=== PATIENT | male | born 1935 | race Caucasian/White ===

== ENCOUNTER 2017-04-16 17:26 | Inpatient (IN) | payer MEDICARE ==
[~2017-04-16] VITALS: Ht 182.9 cm; Wt 91.0 kg
[~2017-04-16 17:26] MED LIST: pantoprazole 40 MG vial IV SCH
[2017-04-16] MEDS ORDERED: morphine 5 MG/ML injection IV ONE ×2 (17:30→19:00)
[2017-04-16] MEDS ORDERED: ondansetron/PF 4mg/2ml inj IV ONE (17:30)
[2017-04-16 18:41] LABS: BASOPHILS % (AUTO) 0 % (0-1); EOSINOPHILS # (AUTO) 0.4 X10'3 (0-0.9); EOSINOPHILS % (AUTO) 1.9 % (0-6); HEMATOCRIT 46.1 % (42.0-52.0); HEMOGLOBIN 15.4 g/dl (14.0-17.9); LYMPHOCYTES # (AUTO) 1.4 X10'3 (1.1-4.8); LYMPHOCYTES % (AUTO) 7.4 % (21-51); MEAN CORPUSCULAR HEMOGLOBIN 31.4 PG (27.0-31.0); MEAN CORPUSCULAR HGB CONC 33.4 % (33.0-36.5); MEAN CORPUSCULAR VOLUME 93.8 FL (78-98); MEAN PLATELET VOLUME 8.6 FL (7.4-10.4); MONOCYTES % (AUTO) 4.9 % (2-12); NEUTROPHILS # (AUTO) 16.7 X10'3 (1.8-7.7); NEUTROPHILS % (AUTO) 85.8 % (42-75); PLATELET COUNT 175 X10'3 (140-440); RED BLOOD COUNT 4.91 X10'6 (4.70-6.10); RED CELL DISTRIBUTION WIDTH 13.5 % (11.5-14.5); WHITE BLOOD COUNT 19.5 X10'3 (4.5-11.0)
[2017-04-16 19:00] LABS: INR 1.1 INR; PROTHROMBIN TIME 11.2 SECONDS (9.0-12.0)
[2017-04-16 19:07] LABS: ALANINE AMINOTRANSFERASE 34 U/L (12-78); ALBUMIN 3.9 G/DL (3.4-5.0); ALKALINE PHOSPHATASE 81 IU/L (46-116); ANION GAP 6 (8-16); ASPARTATE AMINO TRANSFERASE 23 U/L (10-37); BILIRUBIN,TOTAL 1.1 MG/DL (0.1-1.0); BLOOD UREA NITROGEN 16 MG/DL (7-18); BUN/CREATININE RATIO 14.8 (5.4-32.0); CALCIUM 9.8 MG/DL (8.5-10.1); CHLORIDE 104 MMOL/L (99-107); CREATININE 1.08 MG/DL (0.60-1.10); GLUCOSE 145 MG/DL (70-104); MAGNESIUM 1.9 MG/DL (1.5-2.4); POTASSIUM 4.4 MMOL/L (3.5-5.1); SODIUM 140 MMOL/L (135-145); TOTAL CARBON DIOXIDE 29.7 MMOL/L (24-32); TOTAL PROTEIN 7.9 G/DL (6.4-8.2); eGFR 65 ML/MIN
[2017-04-16] MEDS ORDERED: AMLO-93 PO (19:39)
[2017-04-16] MEDS ORDERED: temazepam 15mg capsule PO PRN (21:00)
[2017-04-16] MEDS ORDERED: normal saline 1000ml 1,000 ML IV SCH (22:07)
[2017-04-16] MEDS ORDERED: HYDROmorphone 1 mg/ml syringe IV PRN ×2 (22:10)
[2017-04-16] MEDS ORDERED: diphenhydrAMINE 25mg capsule PO PRN (22:10)
[2017-04-16] MEDS ORDERED: magnesium hydroxide 30ml (MOM) UD suspension PO PRN (22:10)
[2017-04-16] MEDS ORDERED: HYDROcodone/acetaminophen 5mg/325mg tablet PO PRN (22:10)
[2017-04-16] MEDS ORDERED: bisacodyl 10mg suppository rectal RC PRN (22:10)
[2017-04-16] MEDS ORDERED: acetaminophen 325mg tablet PO PRN ×2 (22:10)
[2017-04-16] MEDS ORDERED: metoclopramide 5 mg/ml inj IV PRN (22:10)
[2017-04-16] MEDS ORDERED: diphenhydrAMINE 50 mg/ml inj IV PRN (22:10)
[2017-04-16] MEDS ORDERED: acetaminophen 650mg rectal suppository RC PRN (22:10)
[2017-04-16] MEDS ORDERED: ondansetron/PF 4mg/2ml inj IV PRN (22:10)
[2017-04-16] MEDS ORDERED: mag hydrox/Alum hydrox/simeth 30ml oral suspension PO PRN (22:10)
[2017-04-16] MEDS ORDERED: morphine sulfate 8 MG/ML SYRINGE IV PRN (22:55)
[2017-04-16 23:20] VITALS: BP 147/91
[2017-04-16] MEDS: amLODIPine 5mg tablet PO SCH (23:56)
[2017-04-17] VITALS (17 sets, daily range): BP systolic 106–192; BP diastolic 75–96
[2017-04-17 07:09] LABS: BASOPHILS % (AUTO) 0.2 % (0-1); EOSINOPHILS # (AUTO) 0.1 X10'3 (0-0.9); EOSINOPHILS % (AUTO) 0.9 % (0-6); HEMATOCRIT 44.2 % (42.0-52.0); HEMOGLOBIN 14.9 g/dl (14.0-17.9); LYMPHOCYTES # (AUTO) 1.7 X10'3 (1.1-4.8); LYMPHOCYTES % (AUTO) 17.6 % (21-51); MEAN CORPUSCULAR HEMOGLOBIN 31.4 PG (27.0-31.0); MEAN CORPUSCULAR HGB CONC 33.6 % (33.0-36.5); MEAN CORPUSCULAR VOLUME 93.2 FL (78-98); MEAN PLATELET VOLUME 8.7 FL (7.4-10.4); MONOCYTES # (AUTO) 0.9 X10'3 (0-0.9); MONOCYTES % (AUTO) 9.1 % (2-12); NEUTROPHILS # (AUTO) 6.9 X10'3 (1.8-7.7); NEUTROPHILS % (AUTO) 72.2 % (42-75); PLATELET COUNT 158 X10'3 (140-440); RED BLOOD COUNT 4.74 X10'6 (4.70-6.10); RED CELL DISTRIBUTION WIDTH 13.8 % (11.5-14.5); WHITE BLOOD COUNT 9.5 X10'3 (4.5-11.0)
[2017-04-17] MEDS: amLODIPine 5mg tablet PO SCH (07:18)
[2017-04-17 07:27] LABS: ALANINE AMINOTRANSFERASE 35 U/L (12-78); ALBUMIN 3.6 G/DL (3.4-5.0); ALBUMIN/GLOBULIN RATIO 0.9 (1.1-1.5); ALKALINE PHOSPHATASE 69 IU/L (46-116); ANION GAP 7 (8-16); ASPARTATE AMINO TRANSFERASE 20 U/L (10-37); BILIRUBIN,TOTAL 2.1 MG/DL (0.1-1.0); BLOOD UREA NITROGEN 18 MG/DL (7-18); CALCIUM 9.5 MG/DL (8.5-10.1); CHLORIDE 104 MMOL/L (99-107); CREATININE 1.06 MG/DL (0.60-1.10); GLUCOSE 153 MG/DL (70-104); POTASSIUM 4.6 MMOL/L (3.5-5.1); SODIUM 140 MMOL/L (135-145); TOTAL CARBON DIOXIDE 29.1 MMOL/L (24-32); TOTAL PROTEIN 7.6 G/DL (6.4-8.2); eGFR 67 ML/MIN
[2017-04-17] MEDS: docusate sod 100mg capsule PO SCH ×2 (08:00→21:03)
[2017-04-17] MEDS ORDERED: vancomycin 1,000mg inj ONE (15:33)
[2017-04-17] MEDS: HYDROcodone/acetaminophen 10/325mg tab PO PRN (15:53)
[2017-04-17] MEDS ORDERED: cefazolin/dext.iso 2gm/50ml 50 ML IV SCH (17:00)
[2017-04-17] MEDS ORDERED: sevoflurane 250ml liquid IH ONE (17:03)
[2017-04-17] MEDS ORDERED: fentaNYL/PF 50MCG/1 ML 2ML syringe ONE (17:06)
[2017-04-17] MEDS ORDERED: propofol inj 20 ML IV ONE (17:06)
[2017-04-17] MEDS ORDERED: midazolam 2 mg/2 ml injection ONE (17:06)
[2017-04-17] MEDS ORDERED: ringers solution, lacted 1,000 ML IV SCH (17:46)
[2017-04-17] MEDS ORDERED: ondansetron/PF 4mg/2ml inj IV PRN (17:50)
[2017-04-17] MEDS ORDERED: meperidine/PF 25mg/ml syringe IV PRN ×3 (17:50)
[2017-04-17] MEDS ORDERED: proCHLORperazine 10 MG/2 ml inj IV PRN (17:50)
[2017-04-17] MEDS: normal saline 1000ml 1,000 ML IV SCH (19:25)
[2017-04-18] MEDS: cefazolin/dext.iso 2gm/50ml 50 ML IV SCH ×2 (00:08→08:17)
[2017-04-18] MEDS ORDERED: CefTRIAXone/dextrose 2GM bag 50 ML IV SCH (01:00)
[2017-04-18 02:00] VITALS: BP 141/67
[2017-04-18] MEDS: normal saline 1000ml 1,000 ML IV SCH ×2 (03:17→14:12)
[2017-04-18] MEDS: HYDROcodone/acetaminophen 10/325mg tab PO PRN ×5 (05:20→19:31)
[2017-04-18 06:00] VITALS: BP 166/95
[2017-04-18 06:36] LABS: BASOPHILS % (AUTO) 0.3 % (0-1); EOSINOPHILS # (AUTO) 0.2 X10'3 (0-0.9); EOSINOPHILS % (AUTO) 1.6 % (0-6); HEMATOCRIT 40.2 % (42.0-52.0); HEMOGLOBIN 13.6 g/dl (14.0-17.9); LYMPHOCYTES # (AUTO) 2.1 X10'3 (1.1-4.8); LYMPHOCYTES % (AUTO) 18.7 % (21-51); MEAN CORPUSCULAR HEMOGLOBIN 31.7 PG (27.0-31.0); MEAN CORPUSCULAR HGB CONC 33.7 % (33.0-36.5); MEAN CORPUSCULAR VOLUME 93.8 FL (78-98); MEAN PLATELET VOLUME 8.6 FL (7.4-10.4); MONOCYTES # (AUTO) 1.2 X10'3 (0-0.9); MONOCYTES % (AUTO) 10.8 % (2-12); NEUTROPHILS # (AUTO) 7.8 X10'3 (1.8-7.7); NEUTROPHILS % (AUTO) 68.6 % (42-75); PLATELET COUNT 159 X10'3 (140-440); RED BLOOD COUNT 4.28 X10'6 (4.70-6.10); WHITE BLOOD COUNT 11.4 X10'3 (4.5-11.0)
[2017-04-18 07:08] LABS: ALANINE AMINOTRANSFERASE 30 U/L (12-78); ALBUMIN 3.1 G/DL (3.4-5.0); ALBUMIN/GLOBULIN RATIO 0.8 (1.1-1.5); ALKALINE PHOSPHATASE 61 IU/L (46-116); ANION GAP 5 (8-16); ASPARTATE AMINO TRANSFERASE 20 U/L (10-37); BILIRUBIN,TOTAL 2.2 MG/DL (0.1-1.0); BLOOD UREA NITROGEN 21 MG/DL (7-18); BUN/CREATININE RATIO 19.8 (5.4-32.0); CALCIUM 8.7 MG/DL (8.5-10.1); CHLORIDE 106 MMOL/L (99-107); CREATININE 1.06 MG/DL (0.60-1.10); GLUCOSE 134 MG/DL (70-104); POTASSIUM 4.5 MMOL/L (3.5-5.1); SODIUM 141 MMOL/L (135-145); TOTAL CARBON DIOXIDE 29.9 MMOL/L (24-32); TOTAL PROTEIN 6.8 G/DL (6.4-8.2); eGFR 67 ML/MIN
[2017-04-18] MEDS: amLODIPine 5mg tablet PO SCH (08:18)
[2017-04-18] MEDS: docusate sod 100mg capsule PO SCH ×2 (08:18→19:30)
[2017-04-18] MEDS: aspirin 325mg tablet PO SCH (08:19)
[2017-04-18 10:00] VITALS: BP 125/71
[2017-04-18 14:00] VITALS: BP 147/77
[2017-04-18 17:40] VITALS: BP 139/88
[2017-04-18] MEDS ORDERED: lisinopril 20mg tablet PO SCH (19:00)
[2017-04-18 22:00] VITALS: BP 142/70
[2017-04-19] MEDS: normal saline 1000ml 1,000 ML IV SCH ×3 (00:05→11:25)
[2017-04-19 01:52] VITALS: BP 142/86
[2017-04-19] MEDS: HYDROcodone/acetaminophen 10/325mg tab PO PRN ×4 (02:55→15:41)
[2017-04-19 06:00] VITALS: BP 145/74
[2017-04-19 07:05] LABS: BASOPHILS # (AUTO) 0.1 X10'3 (0-0.2); BASOPHILS % (AUTO) 0.4 % (0-1); EOSINOPHILS # (AUTO) 0.3 X10'3 (0-0.9); EOSINOPHILS % (AUTO) 2.6 % (0-6); HEMATOCRIT 39.4 % (42.0-52.0); HEMOGLOBIN 13.3 g/dl (14.0-17.9); LYMPHOCYTES # (AUTO) 3.1 X10'3 (1.1-4.8); LYMPHOCYTES % (AUTO) 26.3 % (21-51); MEAN CORPUSCULAR HEMOGLOBIN 31.8 PG (27.0-31.0); MEAN CORPUSCULAR HGB CONC 33.8 % (33.0-36.5); MEAN PLATELET VOLUME 8.8 FL (7.4-10.4); MONOCYTES # (AUTO) 1.2 X10'3 (0-0.9); MONOCYTES % (AUTO) 10.1 % (2-12); NEUTROPHILS # (AUTO) 7.1 X10'3 (1.8-7.7); NEUTROPHILS % (AUTO) 60.6 % (42-75); PLATELET COUNT 155 X10'3 (140-440); RED BLOOD COUNT 4.19 X10'6 (4.70-6.10); RED CELL DISTRIBUTION WIDTH 13.6 % (11.5-14.5); WHITE BLOOD COUNT 11.8 X10'3 (4.5-11.0)
[2017-04-19] MEDS: docusate sod 100mg capsule PO SCH (07:05)
[2017-04-19] MEDS: amLODIPine 5mg tablet PO SCH (07:05)
[2017-04-19] MEDS: aspirin 325mg tablet PO SCH (07:05)
[2017-04-19 07:19] LABS: ALANINE AMINOTRANSFERASE 24 U/L (12-78); ALBUMIN/GLOBULIN RATIO 0.8 (1.1-1.5); ALKALINE PHOSPHATASE 61 IU/L (46-116); ANION GAP 5 (8-16); ASPARTATE AMINO TRANSFERASE 19 U/L (10-37); BLOOD UREA NITROGEN 20 MG/DL (7-18); BUN/CREATININE RATIO 21.1 (5.4-32.0); CALCIUM 8.9 MG/DL (8.5-10.1); CHLORIDE 106 MMOL/L (99-107); CREATININE 0.95 MG/DL (0.60-1.10); GLUCOSE 118 MG/DL (70-104); SODIUM 142 MMOL/L (135-145); TOTAL CARBON DIOXIDE 30.6 MMOL/L (24-32); TOTAL PROTEIN 6.9 G/DL (6.4-8.2); eGFR 76 ML/MIN
[2017-04-19] MEDS ORDERED: lisinopril 20mg tablet PO SCH (08:00)
[2017-04-19 11:00] VITALS: BP 135/69
[2017-04-19] MEDS ORDERED: HYDR-569 PO (11:21)
[2017-04-19] MEDS ORDERED: ASPI-1 PO (11:21)
[2017-04-19] MEDS ORDERED: TEMA15CA PO (11:21)
[2017-04-19] MEDS ORDERED: HYDR-3972 PO (11:21)
== END 2017-04-19 16:15 | DRG 481 ==
LOC: ER 17:26 → ED HOLD 22:07 → ORTHO 4S 23:30 → PAS IN 04-17 18:30 → ORTHO 4S 04-17 19:14
PROVIDERS: ADMIT Family Medicine; ATTEND Internal Medicine
PROC: 0QS636Z Reposition Right Upper Femur with Intramedullary Internal Fixation Device, Percutaneous Approach (ICD-10-PCS; principal; 2017-04-17 17:03)
DX: S72.141A Displaced intertrochanteric fracture of right femur, initial encounter for closed fracture (principal); I16.1 Hypertensive emergency; I10 Essential (primary) hypertension; W01.0XXA Fall on same level from slipping, tripping and stumbling without subsequent striking against object, initial encounter; Z79.82 Long term (current) use of aspirin; Z79.899 Other long term (current) drug therapy; Y93.89 Activity, other specified; Y92.89 Other specified places as the place of occurrence of the external cause; Y99.8 Other external cause status
CPT/HCPCS: 27187; 36415; 71010; 73502; 73552; 73700; 76001; 80053; 83735; 83880; 85025; 85610; 87070; 96374; 96375; 96376; 97110; 97161; 97530; 99285; A4315; A6222; A6449; A7000; J0690; J0696; J2250; J2270; J2405; J2704; J3010; J3370; J7030; J7120

== ENCOUNTER 2021-02-13 10:02 | Inpatient (IN) | payer MEDICARE ==
[~2021-02-13] VITALS: Ht 180.3 cm; Wt 109.0 kg
[~2021-02-13 10:02] MED LIST changes: +AMLO-140 PO; +ASPI-1 PO; +HYDR-3972 PO; +HYDR-4383 PO; +TEMA15CA PO; -pantoprazole 40 MG vial IV SCH
[2021-02-13] MEDS ORDERED: piperacillin/tazo 3.375gm/50ml 50 ML IV ONE (10:40)
[2021-02-13] MEDS ORDERED: vancomycin/NS 1 GM ADD-VANTAGE 250 ML IV ONE (10:40)
[2021-02-13] MEDS ORDERED: normal saline 1000ML IV soln IVB ONE (10:40)
[2021-02-13 11:04] LABS: BASOPHILS # (AUTO) 0.1 X10'3 (0-0.2); BASOPHILS % (AUTO) 0.6 % (0-1); EOSINOPHILS # (AUTO) 0.1 X10'3 (0-0.9); EOSINOPHILS % (AUTO) 0.5 % (0-6); HEMATOCRIT 44.1 % (42.0-52.0); HEMOGLOBIN 14.9 g/dl (14.0-17.9); LYMPHOCYTES % (AUTO) 42.5 % (21-51); MEAN CORPUSCULAR HEMOGLOBIN 31.3 PG (27.0-31.0); MEAN CORPUSCULAR HGB CONC 33.8 g/dL (33.0-36.5); MEAN CORPUSCULAR VOLUME 92.4 FL (78-98); MEAN PLATELET VOLUME 8.2 FL (7.4-10.4); MONOCYTES # (AUTO) 1.2 X10'3 (0-0.9); MONOCYTES % (AUTO) 7.4 % (2-12); NEUTROPHILS # (AUTO) 8.1 X10'3 (1.8-7.7); PLATELET COUNT 250 X10'3 (140-440); RED BLOOD COUNT 4.77 X10'6 (4.70-6.10); RED CELL DISTRIBUTION WIDTH 13.4 % (11.5-14.5); WHITE BLOOD COUNT 16.4 X10'3 (4.5-11.0)
[2021-02-13 11:16] LABS: CLARITY,URINE SLIGHTLY CLOUDY (Clear); COLOR,URINE YELLOW (Yellow); GLUCOSE, URINE NEGATIVE (Neg); KETONES,URINE NEGATIVE (Neg); PROTEIN,URINE NEGATIVE (Neg); UA COLLECTION TYPE CLN CATCH MIDSTREAM
[2021-02-13 11:17] LABS: ALANINE AMINOTRANSFERASE 23 U/L (12-78); ALBUMIN 3.5 G/DL (3.4-5.0); ALBUMIN/GLOBULIN RATIO 0.9 (1.1-1.5); ALKALINE PHOSPHATASE 77 IU/L (46-116); ANION GAP 9 (8-16); ASPARTATE AMINO TRANSFERASE 15 U/L (10-37); BLOOD UREA NITROGEN 18 MG/DL (7-18); BUN/CREATININE RATIO 16.8 (5.4-32.0); CALCIUM 9.3 MG/DL (8.5-10.1); CHLORIDE 102 MMOL/L (99-107); CREATININE 1.07 MG/DL (0.60-1.10); GLUCOSE 120 MG/DL (70-104); MAGNESIUM 2.1 MG/DL (1.5-2.4); POTASSIUM 4.1 MMOL/L (3.5-5.1); SODIUM 138 MMOL/L (135-145); TOTAL CARBON DIOXIDE 26.9 MMOL/L (24-32); TOTAL PROTEIN 7.6 G/DL (6.4-8.2); eGFR 65 ML/MIN
[2021-02-13 11:17] LABS: LEUKOCYTE ESTERASE ,URINE NEGATIVE (Neg); NITRITES, URINE NEGATIVE (Neg); OCCULT BLOOD,URINE NEGATIVE (Neg); UROBILINOGEN,URINE 0.2 E.U/dL (0.2-1.0)
[2021-02-13 11:24] LABS: HYALINE CASTS 0-3 /LPF (NEGATIVE); MUCUS STRANDS FEW /LPF (Neg); SQUAMOUS EPITHELIAL CELL,UR FEW /LPF (FEW)
[2021-02-13 11:25] LABS: BACTERIA,URINE FEW /HPF (Neg); RBC,URINE 0-2 /HPF (0-2); STARCH,URINE MODERATE /HPF (NEGATIVE); WBC,URINE 0-4 /HPF (0-4)
[2021-02-13] MEDS ORDERED: morphine 2 MG/ML inj. syringe IV PRN ×2 (12:40)
[2021-02-13] MEDS ORDERED: ondansetron/PF 4mg/2ml inj IV PRN (12:40)
[2021-02-13] MEDS ORDERED: potassium Cl 40MEQ/1/2NS 520ml 520 ML IV PRN ×2 (12:40)
[2021-02-13] MEDS ORDERED: acetaminophen 325mg tablet PO PRN (12:40)
[2021-02-13] MEDS ORDERED: AMLO1CAP2 PO (12:41)
[2021-02-13] MEDS: normal saline 1000ml 1,000 ML IV SCH ×2 (13:43→14:40)
[2021-02-13] MEDS: piperacillin/tazo 3.375gm/50ml 50 ML IV SCH (16:00)
--- NOTE | 2021-02-13 18:03 | NUR ---
Patient refuses to wear gown at this time states he has to get up to bathroom and does not want everyone to see him in a gown. Pat requested to have IVF disconnected at this time.
[2021-02-13] MEDS: K and/or MAG REPLACEMENT MC SCH (20:28)
[2021-02-13] MEDS: heparin, porcine 5000 units/ml vial SQ SCH (20:40)
[2021-02-13] MEDS: lisinopril 20mg tablet PO SCH (20:41)
[2021-02-13] MEDS: amLODIPine 5mg tablet PO SCH (20:41)
[2021-02-14] MEDS: vancomycin/NS 1 GM ADD-VANTAGE 250 ML IV SCH ×3 (00:16→23:52)
[2021-02-14] MEDS: piperacillin/tazo 3.375gm/50ml 50 ML IV SCH ×4 (01:02→23:52)
[2021-02-14 01:40] VITALS: BP 150/76
[2021-02-14 05:00] LABS: BASOPHILS # (AUTO) 0.1 X10'3 (0-0.2); EOSINOPHILS # (AUTO) 0.2 X10'3 (0-0.9); MEAN PLATELET VOLUME 8.2 FL (7.4-10.4)
[2021-02-14 05:02] LABS: BASOPHILS % (AUTO) 0.9 % (0-1); EOSINOPHILS % (AUTO) 2.3 % (0-6); HEMATOCRIT 38.4 % (42.0-52.0); LYMPHOCYTES # (AUTO) 3.5 X10'3 (1.1-4.8); LYMPHOCYTES % (AUTO) 37.7 % (21-51); MEAN CORPUSCULAR HEMOGLOBIN 31.7 PG (27.0-31.0); MEAN CORPUSCULAR HGB CONC 33.9 g/dL (33.0-36.5); MEAN CORPUSCULAR VOLUME 93.5 FL (78-98); MONOCYTES % (AUTO) 10.5 % (2-12); NEUTROPHILS # (AUTO) 4.4 X10'3 (1.8-7.7); NEUTROPHILS % (AUTO) 48.6 % (42-75); PLATELET COUNT 194 X10'3 (140-440); RED BLOOD COUNT 4.11 X10'6 (4.70-6.10); RED CELL DISTRIBUTION WIDTH 13.6 % (11.5-14.5); WHITE BLOOD COUNT 9.2 X10'3 (4.5-11.0)
--- NOTE | 2021-02-14 06:30 | NUR ---
Problems reprioritized. Patient report given, questions answered & plan of care reviewed with SILVESTRE Tim.
[2021-02-14 06:38] LABS: ALANINE AMINOTRANSFERASE 22 U/L (12-78); ALBUMIN 2.5 G/DL (3.4-5.0); ALBUMIN/GLOBULIN RATIO 0.7 (1.1-1.5); ALKALINE PHOSPHATASE 58 IU/L (46-116); ANION GAP 7 (8-16); ASPARTATE AMINO TRANSFERASE 18 U/L (10-37); BILIRUBIN,TOTAL 1.6 MG/DL (0.1-1.0); BLOOD UREA NITROGEN 16 MG/DL (7-18); BUN/CREATININE RATIO 16.3 (5.4-32.0); CALCIUM 8.6 MG/DL (8.5-10.1); CHLORIDE 104 MMOL/L (99-107); CREATININE 0.98 MG/DL (0.60-1.10); GLUCOSE 105 MG/DL (70-104); SODIUM 139 MMOL/L (135-145); TOTAL CARBON DIOXIDE 27.6 MMOL/L (24-32); TOTAL PROTEIN 6.2 G/DL (6.4-8.2); eGFR 72 ML/MIN
--- NOTE | 2021-02-14 06:46 | NUR ---
Patient in room REY 360. I have received report from SILVESTRE Madrid and had the opportunity to ask questions and assume patient care.
[2021-02-14 07:00] VITALS: BP 152/81
[2021-02-14] MEDS: K and/or MAG REPLACEMENT MC SCH ×2 (08:00→20:00)
[2021-02-14] MEDS: amLODIPine 5mg tablet PO SCH (08:39)
[2021-02-14] MEDS: lisinopril 20mg tablet PO SCH (08:39)
[2021-02-14] MEDS: heparin, porcine 5000 units/ml vial SQ SCH ×2 (08:39→21:05)
[2021-02-14 12:00] VITALS: BP 160/64
--- NOTE | 2021-02-14 18:35 | NUR ---
Problems reprioritized. Patient report given, questions answered & plan of care reviewed with SILVESTRE Madrid.
[2021-02-14 20:00] VITALS: BP 136/80
[2021-02-14] MEDS: lactobacillus rhamnosus 10,000 MMU CELLS/CAPSULE PO SCH (21:05)
[2021-02-14] MEDS ORDERED: VANCOMYCIN LEVEL IV ONE (23:30)
[2021-02-15] VITALS: BP 142/64
[2021-02-15] MEDS: normal saline 1000ml 1,000 ML IV SCH ×2 (04:40→20:31)
[2021-02-15 06:30] LABS: BASOPHILS # (AUTO) 0.1 X10'3 (0-0.2); EOSINOPHILS # (AUTO) 0.3 X10'3 (0-0.9); EOSINOPHILS % (AUTO) 2.7 % (0-6); HEMATOCRIT 43.9 % (42.0-52.0); HEMOGLOBIN 14.8 g/dl (14.0-17.9); LYMPHOCYTES # (AUTO) 4.5 X10'3 (1.1-4.8); LYMPHOCYTES % (AUTO) 44.1 % (21-51); MEAN CORPUSCULAR HEMOGLOBIN 32.2 PG (27.0-31.0); MEAN CORPUSCULAR HGB CONC 33.6 g/dL (33.0-36.5); MEAN CORPUSCULAR VOLUME 95.7 FL (78-98); MEAN PLATELET VOLUME 8.4 FL (7.4-10.4); MONOCYTES # (AUTO) 0.9 X10'3 (0-0.9); MONOCYTES % (AUTO) 8.7 % (2-12); NEUTROPHILS # (AUTO) 4.4 X10'3 (1.8-7.7); NEUTROPHILS % (AUTO) 43.5 % (42-75); PLATELET COUNT 225 X10'3 (140-440); RED BLOOD COUNT 4.58 X10'6 (4.70-6.10); RED CELL DISTRIBUTION WIDTH 13.4 % (11.5-14.5); WHITE BLOOD COUNT 10.2 X10'3 (4.5-11.0)
--- NOTE | 2021-02-15 06:31 | NUR ---
Problems reprioritized. Patient report given, questions answered & plan of care reviewed with SILVESTRE Sanders.
[2021-02-15 07:01] LABS: ALANINE AMINOTRANSFERASE 23 U/L (12-78); ALBUMIN 2.8 G/DL (3.4-5.0); ALBUMIN/GLOBULIN RATIO 0.7 (1.1-1.5); ALKALINE PHOSPHATASE 71 IU/L (46-116); ANION GAP 5 (8-16); ASPARTATE AMINO TRANSFERASE 21 U/L (10-37); BILIRUBIN,TOTAL 1.3 MG/DL (0.1-1.0); BLOOD UREA NITROGEN 16 MG/DL (7-18); BUN/CREATININE RATIO 15.5 (5.4-32.0); CALCIUM 8.8 MG/DL (8.5-10.1); CHLORIDE 104 MMOL/L (99-107); CREATININE 1.03 MG/DL (0.60-1.10); GLUCOSE 109 MG/DL (70-104); SODIUM 133 MMOL/L (135-145); eGFR 68 ML/MIN
[2021-02-15 07:06] LABS: POTASSIUM 4.1 MMOL/L (3.5-5.1)
[2021-02-15 07:35] VITALS: BP 183/89
[2021-02-15] MEDS: K and/or MAG REPLACEMENT MC SCH ×2 (08:00→20:00)
[2021-02-15] MEDS: lisinopril 20mg tablet PO SCH (08:27)
[2021-02-15] MEDS: lactobacillus rhamnosus 10,000 MMU CELLS/CAPSULE PO SCH ×2 (08:28→20:31)
[2021-02-15] MEDS: amLODIPine 5mg tablet PO SCH (08:28)
[2021-02-15] MEDS: heparin, porcine 5000 units/ml vial SQ SCH ×2 (08:30→20:31)
[2021-02-15] MEDS: piperacillin/tazo 3.375gm/50ml 50 ML IV SCH ×2 (08:34→16:34)
[2021-02-15 08:37] LABS: NUCLEATED RED BLOOD CELLS 0 /100WBC (0-0); PLATELET ESTIMATE NORMAL; SMUDGE CELLS 2+; TOTAL CELLS COUNTED 100
[2021-02-15] MEDS ORDERED: CLIN-97 PO (09:57)
[2021-02-15] MEDS ORDERED: AMOX-419 PO (09:57)
--- NOTE | 2021-02-15 12:22 | NUR ---
PAGER ID: [phone] MESSAGE: [id number] Ashley, R: patient painful. only has morphine ordered. would like something PO? thank you! Marilyn [phone]
[2021-02-15 12:30] VITALS: BP 162/87
[2021-02-15] MEDS: VANCOmycin 1250MG/NS 250ml Bag 250 ML IV SCH (12:38)
[2021-02-15] MEDS: HYDROcodone/acetaminophen 5mg/325mg tablet PO PRN (16:35)
--- NOTE | 2021-02-15 18:12 | NUR ---
PAGER ID: [phone] MESSAGE: [id number] Terri CANELA: PATIENT GASSY AND FUSSY AFTER FEEDINGS. FAMILY AT BEDSIDE IS REQUESTING ANTONIAE SUSPENSION? [id number] Addendum: 02/15/21 at 1816 by Marilyn Deluca RN WRONG PATIENT. PLEASE DISREGARD THIS NOTE!
--- NOTE | 2021-02-15 18:15 | NUR ---
Problems reprioritized. Patient report given, questions answered & plan of care reviewed with SILVESTRE JOHN.
[2021-02-15 20:00] VITALS: BP 150/68
[2021-02-16] VITALS: BP 182/92
[2021-02-16] MEDS: VANCOmycin 1250MG/NS 250ml Bag 250 ML IV SCH ×2 (00:07→14:31)
[2021-02-16] MEDS: piperacillin/tazo 3.375gm/50ml 50 ML IV SCH ×3 (00:07→16:28)
--- NOTE | 2021-02-16 06:38 | NUR ---
Problems reprioritized. Patient report given, questions answered & plan of care reviewed with SILVESTRE Gonzalez.
[2021-02-16 06:43] LABS: BASOPHILS # (AUTO) 0.1 X10'3 (0-0.2); EOSINOPHILS # (AUTO) 0.4 X10'3 (0-0.9); MEAN CORPUSCULAR HGB CONC 33.7 g/dL (33.0-36.5); NEUTROPHILS # (AUTO) 4.5 X10'3 (1.8-7.7); PLATELET COUNT 231 X10'3 (140-440); RED BLOOD COUNT 4.48 X10'6 (4.70-6.10)
[2021-02-16 06:46] LABS: BASOPHILS % (AUTO) 1.1 % (0-1); EOSINOPHILS % (AUTO) 3.7 % (0-6); HEMATOCRIT 42.3 % (42.0-52.0); HEMOGLOBIN 14.3 g/dl (14.0-17.9); LYMPHOCYTES # (AUTO) 4.3 X10'3 (1.1-4.8); LYMPHOCYTES % (AUTO) 41.8 % (21-51); MEAN CORPUSCULAR HEMOGLOBIN 31.9 PG (27.0-31.0); MEAN CORPUSCULAR VOLUME 94.5 FL (78-98); MEAN PLATELET VOLUME 8.7 FL (7.4-10.4); MONOCYTES # (AUTO) 1.1 X10'3 (0-0.9); MONOCYTES % (AUTO) 10.4 % (2-12); RED CELL DISTRIBUTION WIDTH 13.6 % (11.5-14.5); WHITE BLOOD COUNT 10.4 X10'3 (4.5-11.0)
[2021-02-16 06:53] LABS: ALANINE AMINOTRANSFERASE 22 U/L (12-78); ALBUMIN 2.8 G/DL (3.4-5.0); ALBUMIN/GLOBULIN RATIO 0.7 (1.1-1.5); ALKALINE PHOSPHATASE 72 IU/L (46-116); ANION GAP 3 (8-16); ASPARTATE AMINO TRANSFERASE 19 U/L (10-37); BILIRUBIN,TOTAL 1.2 MG/DL (0.1-1.0); BLOOD UREA NITROGEN 15 MG/DL (7-18); BUN/CREATININE RATIO 13.2 (5.4-32.0); CHLORIDE 106 MMOL/L (99-107); CREATININE 1.14 MG/DL (0.60-1.10); GLUCOSE 106 MG/DL (70-104); POTASSIUM 4.4 MMOL/L (3.5-5.1); SODIUM 137 MMOL/L (135-145); TOTAL PROTEIN 6.8 G/DL (6.4-8.2); eGFR 61 ML/MIN
[2021-02-16] MEDS: lactobacillus rhamnosus 10,000 MMU CELLS/CAPSULE PO SCH ×2 (07:24→21:06)
[2021-02-16] MEDS: amLODIPine 5mg tablet PO SCH (07:28)
[2021-02-16] MEDS: lisinopril 20mg tablet PO SCH (07:29)
[2021-02-16] MEDS: heparin, porcine 5000 units/ml vial SQ SCH ×2 (07:31→21:06)
[2021-02-16] MEDS: K and/or MAG REPLACEMENT MC SCH ×2 (08:00→20:00)
[2021-02-16 09:52] VITALS: BP 144/90
[2021-02-16 20:00] VITALS: BP 152/74
[2021-02-16] MEDS: HYDROcodone/acetaminophen 5mg/325mg tablet PO PRN (21:07)
[2021-02-16] MEDS ORDERED: VANCOMYCIN LEVEL IV ONE (23:30)
[2021-02-17] VITALS: BP 160/87
[2021-02-17] MEDS: VANCOmycin 1250MG/NS 250ml Bag 250 ML IV SCH ×2 (00:45→12:11)
[2021-02-17] MEDS: piperacillin/tazo 3.375gm/50ml 50 ML IV SCH ×3 (00:46→17:13)
[2021-02-17] MEDS: normal saline 1000ml 1,000 ML IV SCH ×2 (00:47→16:40)
[2021-02-17 05:49] LABS: BASOPHILS # (AUTO) 0.1 X10'3 (0-0.2); EOSINOPHILS # (AUTO) 0.4 X10'3 (0-0.9); EOSINOPHILS % (AUTO) 3.9 % (0-6); LYMPHOCYTES # (AUTO) 3.8 X10'3 (1.1-4.8); MEAN CORPUSCULAR HEMOGLOBIN 31.7 PG (27.0-31.0); MONOCYTES # (AUTO) 0.9 X10'3 (0-0.9); RED CELL DISTRIBUTION WIDTH 13.5 % (11.5-14.5)
[2021-02-17 05:52] LABS: BASOPHILS % (AUTO) 0.9 % (0-1); HEMOGLOBIN 13.8 g/dl (14.0-17.9); LYMPHOCYTES % (AUTO) 41.8 % (21-51); MEAN CORPUSCULAR HGB CONC 33.7 g/dL (33.0-36.5); MEAN CORPUSCULAR VOLUME 93.9 FL (78-98); MEAN PLATELET VOLUME 8.6 FL (7.4-10.4); MONOCYTES % (AUTO) 9.4 % (2-12); PLATELET COUNT 232 X10'3 (140-440); RED BLOOD COUNT 4.36 X10'6 (4.70-6.10); WHITE BLOOD COUNT 9.2 X10'3 (4.5-11.0)
[2021-02-17 06:16] LABS: ALANINE AMINOTRANSFERASE 24 U/L (12-78); ALBUMIN 2.5 G/DL (3.4-5.0); ALBUMIN/GLOBULIN RATIO 0.6 (1.1-1.5); ALKALINE PHOSPHATASE 70 IU/L (46-116); ANION GAP 7 (8-16); ASPARTATE AMINO TRANSFERASE 18 U/L (10-37); BLOOD UREA NITROGEN 14 MG/DL (7-18); BUN/CREATININE RATIO 13.7 (5.4-32.0); CALCIUM 8.5 MG/DL (8.5-10.1); CHLORIDE 105 MMOL/L (99-107); CREATININE 1.02 MG/DL (0.60-1.10); GLUCOSE 104 MG/DL (70-104); SODIUM 140 MMOL/L (135-145); TOTAL CARBON DIOXIDE 27.9 MMOL/L (24-32); TOTAL PROTEIN 6.8 G/DL (6.4-8.2); eGFR 69 ML/MIN
--- NOTE | 2021-02-17 06:44 | NUR ---
Problems reprioritized. Patient report given, questions answered & plan of care reviewed with SILVESTRE Pederson.
--- NOTE | 2021-02-17 06:59 | NUR ---
Patient in room REY 360. I have received report from Mercy RIVERS traveler and had the opportunity to ask questions and assume patient care.
[2021-02-17] MEDS: K and/or MAG REPLACEMENT MC SCH ×2 (08:00→20:00)
[2021-02-17] MEDS: lactobacillus rhamnosus 10,000 MMU CELLS/CAPSULE PO SCH ×2 (09:01→20:02)
[2021-02-17] MEDS: amLODIPine 5mg tablet PO SCH (09:02)
[2021-02-17] MEDS: heparin, porcine 5000 units/ml vial SQ SCH ×2 (09:04→20:04)
[2021-02-17] MEDS: lisinopril 20mg tablet PO SCH (10:16)
--- NOTE | 2021-02-17 11:33 | NUR ---
Initial: Pt admitted w/ L hand cellulitis s/p cat scratch/bite per EMR. Pt currently on Regular diet eating mostly 75-100% of meals meeting needs; able to feed self. [facility] 02/15 w/ no bowel care. No nutrition intervention at this time, will continue to monitor. Recs: 1. Continue Regular diet as tolerated 2. Bowel care per rx 3. Weekly wts Addendum: 02/17/21 at [address] Amended: Links added.
[2021-02-17 18:00] VITALS: BP 124/80
--- NOTE | 2021-02-17 18:32 | NUR ---
PAGER ID: [phone] MESSAGE: Jimmy Odalys [id number]- Pt's lung sounds are a bit wet and wheeze, upper love and diminished on bilateral posterior bases. Peeing well, and drinking plenty of fluids. Can we SL him please. Thank you Dacia Escalera [phone]
--- NOTE | 2021-02-17 19:33 | NUR ---
Student documentation: I have reviewed and agree with all interventions, assessments performed and documented by Kenneth tee [employer] student.
[2021-02-18] VITALS: BP 139/87
[2021-02-18] MEDS: VANCOmycin 1250MG/NS 250ml Bag 250 ML IV SCH ×2 (00:03→13:21)
[2021-02-18] MEDS: piperacillin/tazo 3.375gm/50ml 50 ML IV SCH ×3 (01:46→17:49)
--- NOTE | 2021-02-18 06:24 | NUR ---
Student documentation: I have reviewed and agree with all interventions, assessments performed and documented by Sandra Angeles Nurse. Student Medication Administration: For this medication-pass time frame, all medication were reviewed, dispensed, administered and documented per hospital policy by Sandra Angeles.
[2021-02-18 06:32] LABS: BASOPHILS # (AUTO) 0.1 X10'3 (0-0.2); EOSINOPHILS # (AUTO) 0.4 X10'3 (0-0.9); EOSINOPHILS % (AUTO) 3.2 % (0-6); HEMATOCRIT 40.2 % (42.0-52.0); LYMPHOCYTES # (AUTO) 4.9 X10'3 (1.1-4.8); NEUTROPHILS % (AUTO) 43.1 % (42-75)
[2021-02-18 06:34] LABS: BASOPHILS % (AUTO) 1.1 % (0-1); HEMOGLOBIN 13.7 g/dl (14.0-17.9); LYMPHOCYTES % (AUTO) 43.2 % (21-51); MEAN CORPUSCULAR HEMOGLOBIN 31.9 PG (27.0-31.0); MEAN CORPUSCULAR VOLUME 93.8 FL (78-98); MEAN PLATELET VOLUME 8.2 FL (7.4-10.4); MONOCYTES # (AUTO) 1.1 X10'3 (0-0.9); MONOCYTES % (AUTO) 9.4 % (2-12); NEUTROPHILS # (AUTO) 4.9 X10'3 (1.8-7.7); PLATELET COUNT 239 X10'3 (140-440); RED BLOOD COUNT 4.28 X10'6 (4.70-6.10); RED CELL DISTRIBUTION WIDTH 13.4 % (11.5-14.5); WHITE BLOOD COUNT 11.3 X10'3 (4.5-11.0)
--- NOTE | 2021-02-18 06:39 | NUR ---
Problems reprioritized. Patient report given, questions answered & plan of care reviewed with SILVESTRE Anthony.
--- NOTE | 2021-02-18 06:49 | NUR ---
Patient in room REY 360. I have received report from Silvia rodriguez and had the opportunity to ask questions and assume patient care.
[2021-02-18 06:54] LABS: ALANINE AMINOTRANSFERASE 23 U/L (12-78); ALBUMIN 2.6 G/DL (3.4-5.0); ALBUMIN/GLOBULIN RATIO 0.7 (1.1-1.5); ALKALINE PHOSPHATASE 76 IU/L (46-116); ANION GAP 6 (8-16); ASPARTATE AMINO TRANSFERASE 20 U/L (10-37); BLOOD UREA NITROGEN 14 MG/DL (7-18); BUN/CREATININE RATIO 12.8 (5.4-32.0); CALCIUM 8.7 MG/DL (8.5-10.1); CHLORIDE 107 MMOL/L (99-107); CREATININE 1.09 MG/DL (0.60-1.10); GLUCOSE 109 MG/DL (70-104); POTASSIUM 4.1 MMOL/L (3.5-5.1); SODIUM 140 MMOL/L (135-145); TOTAL CARBON DIOXIDE 26.7 MMOL/L (24-32); TOTAL PROTEIN 6.6 G/DL (6.4-8.2); eGFR 64 ML/MIN
[2021-02-18 07:00] VITALS: BP 161/86
[2021-02-18] MEDS: K and/or MAG REPLACEMENT MC SCH ×2 (08:00→18:52)
[2021-02-18] MEDS: lisinopril 20mg tablet PO SCH (08:04)
[2021-02-18] MEDS: lactobacillus rhamnosus 10,000 MMU CELLS/CAPSULE PO SCH ×2 (08:04→19:48)
[2021-02-18] MEDS: amLODIPine 5mg tablet PO SCH (08:05)
[2021-02-18] MEDS: heparin, porcine 5000 units/ml vial SQ SCH ×2 (08:06→19:49)
[2021-02-18 11:00] VITALS: BP 152/79
[2021-02-18] MEDS: normal saline 1000ml 1,000 ML IV SCH (12:40)
--- NOTE | 2021-02-18 18:41 | NUR ---
Problems reprioritized. Patient report given, questions answered & plan of care reviewed with gloria rodriguez.
[2021-02-18 20:00] VITALS: BP 124/85
[2021-02-19] VITALS: BP 151/83
--- NOTE | 2021-02-19 06:19 | NUR ---
Problems reprioritized. Patient report given, questions answered & plan of care reviewed with SILVESTRE Anthony.
--- NOTE | 2021-02-19 07:00 | NUR ---
Patient in room REY 360. I have received report from DORA RIVERS and had the opportunity to ask questions and assume patient care.
[2021-02-19 08:00] VITALS: BP 158/85
[2021-02-19] MEDS: K and/or MAG REPLACEMENT MC SCH (08:00)
[2021-02-19] MEDS: normal saline 1000ml 1,000 ML IV SCH (08:40)
[2021-02-19] MEDS: piperacillin/tazo 3.375gm/50ml 50 ML IV SCH ×2 (09:10)
[2021-02-19] MEDS: lactobacillus rhamnosus 10,000 MMU CELLS/CAPSULE PO SCH (09:13)
[2021-02-19] MEDS: lisinopril 20mg tablet PO SCH (09:13)
[2021-02-19] MEDS: amLODIPine 5mg tablet PO SCH (09:13)
[2021-02-19] MEDS: heparin, porcine 5000 units/ml vial SQ SCH (09:14)
[2021-02-19 10:27] LABS: BASOPHILS # (AUTO) 0.1 X10'3 (0-0.2); BASOPHILS % (AUTO) 1.2 % (0-1); EOSINOPHILS # (AUTO) 0.2 X10'3 (0-0.9); EOSINOPHILS % (AUTO) 2.3 % (0-6); HEMATOCRIT 41.1 % (42.0-52.0); HEMOGLOBIN 13.8 g/dl (14.0-17.9); LYMPHOCYTES # (AUTO) 3.8 X10'3 (1.1-4.8); LYMPHOCYTES % (AUTO) 38.9 % (21-51); MEAN CORPUSCULAR HEMOGLOBIN 31.6 PG (27.0-31.0); MEAN CORPUSCULAR HGB CONC 33.6 g/dL (33.0-36.5); MEAN PLATELET VOLUME 7.8 FL (7.4-10.4); MONOCYTES # (AUTO) 0.9 X10'3 (0-0.9); NEUTROPHILS # (AUTO) 4.7 X10'3 (1.8-7.7); NEUTROPHILS % (AUTO) 48.6 % (42-75); PLATELET COUNT 252 X10'3 (140-440); RED BLOOD COUNT 4.37 X10'6 (4.70-6.10); RED CELL DISTRIBUTION WIDTH 13.5 % (11.5-14.5); WHITE BLOOD COUNT 9.7 X10'3 (4.5-11.0)
[2021-02-19 10:41] LABS: ALANINE AMINOTRANSFERASE 27 U/L (12-78); ALBUMIN 2.8 G/DL (3.4-5.0); ALBUMIN/GLOBULIN RATIO 0.7 (1.1-1.5); ALKALINE PHOSPHATASE 73 IU/L (46-116); ANION GAP 7 (8-16); ASPARTATE AMINO TRANSFERASE 15 U/L (10-37); BILIRUBIN,TOTAL 0.9 MG/DL (0.1-1.0); BLOOD UREA NITROGEN 12 MG/DL (7-18); BUN/CREATININE RATIO 10.8 (5.4-32.0); CALCIUM 8.3 MG/DL (8.5-10.1); CHLORIDE 105 MMOL/L (99-107); CREATININE 1.11 MG/DL (0.60-1.10); GLUCOSE 150 MG/DL (70-104); SODIUM 139 MMOL/L (135-145); TOTAL CARBON DIOXIDE 27.2 MMOL/L (24-32); TOTAL PROTEIN 6.9 G/DL (6.4-8.2); eGFR 63 ML/MIN
[2021-02-19 11:53] VITALS: BP 148/69
[2021-02-19] MEDS: VANCOmycin 1250MG/NS 250ml Bag 250 ML IV SCH ×2 (13:09)
--- NOTE | 2021-02-19 16:17 | NUR ---
pt iv discharged canula patent and intact. all discharge info went over with pt. pt had no further questions and will follow up with PCP. all belongings sent home with pt. pt is stable for discharge, was wheeled down in wheel chair, and left in a private vehicle with friend.
== END 2021-02-19 16:19 | disposition home or self-care (01) | DRG 603 ==
LOC: ER 10:02 → ED HOLD 12:38 → SUR 3N 02-14 01:25
PROVIDERS: ADMIT Internal Medicine; ATTEND Internal Medicine
DX: L03.114 Cellulitis of left upper limb (principal); N17.9 Acute kidney failure, unspecified; Z20.822 Contact with and (suspected) exposure to COVID-19; I10 Essential (primary) hypertension; M77.8 Other enthesopathies, not elsewhere classified; M72.0 Palmar fascial fibromatosis [Dupuytren]; Z66 Do not resuscitate; Y93.89 Activity, other specified; Y92.89 Other specified places as the place of occurrence of the external cause; Y99.8 Other external cause status; Z79.899 Other long term (current) drug therapy; W55.01XA Bitten by cat, initial encounter
CPT/HCPCS: 36415; 71045; 73218; 80053; 80202; 81001; 83605; 83735; 84145; 85007; 85025; 87040; 87081; 87635; 93005; 96365; 97161; 97530; 99285; G0378; J1644; J2270; J2543; J3370; J7030

== ENCOUNTER 2021-09-16 17:12 | Inpatient (IN) | payer MEDICARE ==
[~2021-09-16] VITALS: Ht 180.3 cm; Wt 104.5 kg
[~2021-09-16 17:12] MED LIST changes: -AMLO-140 PO; +AMLO1CAP2 PO; -ASPI-1 PO; +CLIN-97 PO; -HYDR-3972 PO; -HYDR-4383 PO; -TEMA15CA PO
[2021-09-16] MEDS ORDERED: ASPI81TA52 PO (17:28)
[2021-09-16 17:45] LABS: BASOPHILS # (AUTO) 0.1 X10'3 (0-0.2)
[2021-09-16] MEDS ORDERED: aspirin 81mg tab.chew PO ONE (17:45)
[2021-09-16 17:47] LABS: BASOPHILS % (AUTO) 0.8 % (0-1); EOSINOPHILS % (AUTO) 0.3 % (0-6); HEMATOCRIT 42.6 % (42.0-52.0); HEMOGLOBIN 14.2 g/dl (14.0-17.9); LYMPHOCYTES # (AUTO) 5.5 X10'3 (1.1-4.8); LYMPHOCYTES % (AUTO) 37.6 % (21-51); MEAN CORPUSCULAR HEMOGLOBIN 30.7 PG (27.0-31.0); MEAN CORPUSCULAR HGB CONC 33.4 g/dL (33.0-36.5); MEAN CORPUSCULAR VOLUME 91.9 FL (78-98); MEAN PLATELET VOLUME 9.6 FL (7.4-10.4); MONOCYTES # (AUTO) 1.1 X10'3 (0-0.9); MONOCYTES % (AUTO) 7.8 % (2-12); NEUTROPHILS # (AUTO) 7.9 X10'3 (1.8-7.7); NEUTROPHILS % (AUTO) 53.5 % (42-75); PLATELET COUNT 198 X10'3 (140-440); RED BLOOD COUNT 4.64 X10'6 (4.70-6.10); RED CELL DISTRIBUTION WIDTH 14.8 % (11.5-14.5); WHITE BLOOD COUNT 14.7 X10'3 (4.5-11.0)
[2021-09-16] MEDS ORDERED: ASPI-1264 PO (17:52)
[2021-09-16 17:53] LABS: ALANINE AMINOTRANSFERASE 24 U/L (12-78); ALBUMIN 3.3 G/DL (3.4-5.0); ALBUMIN/GLOBULIN RATIO 0.9 (1.1-1.5); ALKALINE PHOSPHATASE 90 IU/L (46-116); ANION GAP 9 (8-16); ASPARTATE AMINO TRANSFERASE 16 U/L (10-37); BILIRUBIN,TOTAL 2.2 MG/DL (0.1-1.0); BLOOD UREA NITROGEN 21 MG/DL (7-18); BUN/CREATININE RATIO 16.3 (5.4-32.0); CALCIUM 8.8 MG/DL (8.5-10.1); CHLORIDE 107 MMOL/L (99-107); CREATININE 1.29 MG/DL (0.60-1.10); GLUCOSE 138 MG/DL (70-104); POTASSIUM 4.2 MMOL/L (3.5-5.1); SODIUM 141 MMOL/L (135-145); TOTAL CARBON DIOXIDE 25.2 MMOL/L (24-32); eGFR 53 ML/MIN
--- NOTE | 2021-09-16 17:56 | NUR ---
AT BEDSIDE. PER , PT TAKES A FULL 324MG ASPIRIN DAILY AND TOOK ONE TODAY. PER MICHAEL, ORDERED ASPIRIN IS NOT NEEDED
[2021-09-16 18:00] LABS: MAGNESIUM 2.2 MG/DL (1.5-2.4)
[2021-09-16] MEDS ORDERED: furosemide 10 MG/1 ML 10ml inj IV ONE (18:40)
[2021-09-16] MEDS ORDERED: acetaminophen 325mg tablet PO PRN (19:40)
[2021-09-16] MEDS ORDERED: magnesium 2GM in 50ml NS 50 ML IV PRN (19:40)
[2021-09-16] MEDS ORDERED: ondansetron/PF 4mg/2ml inj IV PRN (19:40)
[2021-09-16] MEDS ORDERED: potassium CL 10mEq/100ml bag 100 ML IV PRN (19:40)
[2021-09-16] MEDS ORDERED: mag hydrox/Alum hydrox/simeth 30ml oral suspension PO PRN (19:40)
[2021-09-16] MEDS ORDERED: magnesium 4gm in 100ml NS 100 ML IV PRN (19:40)
[2021-09-16] MEDS ORDERED: magnesium Cl slow-release 64mg tablet PO PRN (19:40)
[2021-09-16] MEDS ORDERED: POTASSIUM BICARB 20meq eff tab 20 MEQ TABLET.EFF PO PRN ×2 (19:40)
[2021-09-16] MEDS ORDERED: magnesium hydroxide 30ml (MOM) UD suspension PO PRN (19:40)
[2021-09-16] MEDS ORDERED: PERFLUTREN PROTEIN-A MICROSPHR (Optison) 0.22 MG/ML 3ML VIAL IV ONE (19:40)
[2021-09-16] MEDS: K and/or MAG REPLACEMENT MC SCH (20:00)
[2021-09-16 20:24] LABS: POTASSIUM 4.5 MMOL/L (3.5-5.1)
[2021-09-16] MEDS: docusate sod 100mg capsule PO SCH (20:24)
[2021-09-16] MEDS: heparin, porcine 5000 units/ml vial SQ SCH (20:24)
[2021-09-16 21:05] VITALS: BP 156/64
[2021-09-17] VITALS (23 sets, daily range): BP systolic 138–179; BP diastolic 50–96
[2021-09-17 06:11] LABS: BASOPHILS # (AUTO) 0.1 X10'3 (0-0.2); EOSINOPHILS % (AUTO) 0.2 % (0-6); HEMOGLOBIN 13.9 g/dl (14.0-17.9); RED CELL DISTRIBUTION WIDTH 14.4 % (11.5-14.5)
--- NOTE | 2021-09-17 06:14 | NUR ---
Patient in room ORTHO 4020. I have received report from antonia rn and had the opportunity to ask questions and assume patient care.
[2021-09-17 06:16] LABS: BASOPHILS % (AUTO) 0.5 % (0-1); HEMATOCRIT 41.8 % (42.0-52.0); LYMPHOCYTES # (AUTO) 5.4 X10'3 (1.1-4.8); LYMPHOCYTES % (AUTO) 34.5 % (21-51); MEAN CORPUSCULAR HEMOGLOBIN 30.5 PG (27.0-31.0); MEAN CORPUSCULAR HGB CONC 33.3 g/dL (33.0-36.5); MEAN CORPUSCULAR VOLUME 91.6 FL (78-98); MEAN PLATELET VOLUME 9.7 FL (7.4-10.4); MONOCYTES # (AUTO) 1.1 X10'3 (0-0.9); MONOCYTES % (AUTO) 6.9 % (2-12); NEUTROPHILS # (AUTO) 9.1 X10'3 (1.8-7.7); NEUTROPHILS % (AUTO) 57.9 % (42-75); PLATELET COUNT 197 X10'3 (140-440); RED BLOOD COUNT 4.57 X10'6 (4.70-6.10); WHITE BLOOD COUNT 15.6 X10'3 (4.5-11.0)
[2021-09-17 06:27] LABS: ALANINE AMINOTRANSFERASE 24 U/L (12-78); ALBUMIN 3.3 G/DL (3.4-5.0); ALBUMIN/GLOBULIN RATIO 0.9 (1.1-1.5); ALKALINE PHOSPHATASE 92 IU/L (46-116); ANION GAP 8 (8-16); ASPARTATE AMINO TRANSFERASE 21 U/L (10-37); BILIRUBIN,TOTAL 3.1 MG/DL (0.1-1.0); BLOOD UREA NITROGEN 19 MG/DL (7-18); BUN/CREATININE RATIO 16.1 (5.4-32.0); CHLORIDE 108 MMOL/L (99-107); CHOL/HDL RATIO 3.4 (0.00-4.99); CHOLESTEROL 141 MG/DL (0-200); CREATININE 1.18 MG/DL (0.60-1.10); GLUCOSE 133 MG/DL (70-104); HDL CHOLESTEROL 42 MG/DL (35-60); LDL CHOLESTEROL 83 MG/DL (50-100); MAGNESIUM 2.1 MG/DL (1.5-2.4); POTASSIUM 4.2 MMOL/L (3.5-5.1); SODIUM 141 MMOL/L (135-145); TOTAL CARBON DIOXIDE 25.5 MMOL/L (24-32); TOTAL PROTEIN 7.1 G/DL (6.4-8.2); TRIGLYCERIDES 65 MG/DL (20-135); eGFR 58 ML/MIN
[2021-09-17 06:44] LABS: CALCIUM 8.5 MG/DL (8.5-10.1)
[2021-09-17] MEDS: aspirin 325mg tablet PO SCH (07:47)
[2021-09-17] MEDS: heparin, porcine 5000 units/ml vial SQ SCH ×2 (07:47→21:30)
[2021-09-17] MEDS: amLODIPine 5mg tablet PO SCH (07:53)
[2021-09-17] MEDS: lisinopril 20mg tablet PO SCH (07:55)
[2021-09-17] MEDS: docusate sod 100mg capsule PO SCH ×2 (08:00→20:00)
[2021-09-17] MEDS: K and/or MAG REPLACEMENT MC SCH ×2 (08:00→20:00)
[2021-09-17] MEDS ORDERED: BENA40TA46 PO (12:57)
[2021-09-17] MEDS ORDERED: AMLO10TA PO (12:57)
[2021-09-17] MEDS ORDERED: LIDOcaine 1% 30ml preserv. free vial ONE (14:09)
[2021-09-17] MEDS ORDERED: proCHLORperazine 10 MG/2 ml inj IV PRN (14:45)
[2021-09-17] MEDS ORDERED: ondansetron/PF 4mg/2ml inj IV PRN ×2 (14:45→17:05)
[2021-09-17] MEDS ORDERED: ringers solution, lacted 1,000 ML IV SCH (14:45)
[2021-09-17] MEDS ORDERED: morphine 4 MG/ML inj SYRINge IV PRN (14:45)
[2021-09-17] MEDS ORDERED: meperidine/PF 25mg/ml syringe IV PRN ×3 (14:45)
[2021-09-17] MEDS ORDERED: morphine 2 MG/ML inj. syringe IV PRN (14:45)
--- NOTE | 2021-09-17 14:45 | NUR ---
called report to OR.
--- NOTE | 2021-09-17 15:05 | NUR ---
pt wheeled down to or at this time
[2021-09-17] MEDS ORDERED: FENTANYL CITRATE/PF 50 MCG/1 ML VIAL ONE (16:06)
[2021-09-17] MEDS ORDERED: MIDAZolam 1 MG/ML 5ML VIAL ONE (16:06)
[2021-09-17] MEDS ORDERED: ceFAZolin 1000mg inj ONE ×2 (16:16→16:19)
[2021-09-17] MEDS ORDERED: ATROPINE SULFATE 0.4 MG/ML injection (OR only) ONE (16:19)
[2021-09-17] MEDS ORDERED: BUPIVAcaine/PF 2.5 mg/ml (0.25%) 30ml vial ONE (16:20)
[2021-09-17] MEDS ORDERED: naloxone 0.4 mg/ml inj IV PRN (17:05)
[2021-09-17] MEDS ORDERED: HYDROcodone/acetaminophen 10/325mg tab PO PRN (17:05)
--- NOTE | 2021-09-17 17:08 | NUR ---
Received from OR via HOSPITAL BED , accompanied by Anesthesiologist DR NORWOOD and report given by Anesthesiolgist. PT PRESENTS WITH PIV 18G LEFT FOREARM, DRESSING ON LEFT UPPER CHEST CDI, VSS. Addendum: 09/17/21 at 1738 by Africa Fang RN, RN Amended: Links added.
--- NOTE | 2021-09-17 18:16 | NUR ---
Problems reprioritized. Patient report given, questions answered & plan of care reviewed with darrel rodriguez.
--- NOTE | 2021-09-17 19:18 | NUR ---
Report called to receiving nurse URIAH RIVERS. Transferred via HOSPITAL BED BACK TO ROOM 4020A. PT Huseyin CHADWICK LEFT IN PT ROOM. BED IN LOW LOCKED POSITION, CALL LIGHT IN REACH, PT LEANN DUP TO VITALS MACHINE. Special Issues communicated to receiving nurse. Addendum: 09/17/21 at 1930 by Africa Fang RN, RN Amended: Links added.
[2021-09-17] MEDS ORDERED: ipratropium/albuterol 3ml nebule NEB PRN (19:25)
[2021-09-17] MEDS: ceFAZolin/D5W- 1GM premix 50 ML IV SCH (21:30)
[2021-09-17] MEDS: psyllium seed 3.4 gm packet PO SCH (21:31)
[2021-09-18] MEDS ORDERED: ceFAZolin inj. 1,000 MG in dextrose 5%-water 50ml 50 ML IV SCH ×2
[2021-09-18 02:00] VITALS: BP 140/66
[2021-09-18] MEDS: ceFAZolin/D5W- 1GM premix 50 ML IV SCH (02:34)
[2021-09-18 06:00] VITALS: BP 145/82
[2021-09-18 06:11] LABS: BASOPHILS # (AUTO) 0.1 X10'3 (0-0.2); EOSINOPHILS # (AUTO) 0.1 X10'3 (0-0.9); HEMOGLOBIN 13.4 g/dl (14.0-17.9); LYMPHOCYTES # (AUTO) 4.4 X10'3 (1.1-4.8); MEAN PLATELET VOLUME 9.4 FL (7.4-10.4); RED BLOOD COUNT 4.46 X10'6 (4.70-6.10); RED CELL DISTRIBUTION WIDTH 14.4 % (11.5-14.5)
[2021-09-18 06:12] LABS: BASOPHILS % (AUTO) 0.7 % (0-1); EOSINOPHILS % (AUTO) 0.7 % (0-6); HEMATOCRIT 40.8 % (42.0-52.0); LYMPHOCYTES % (AUTO) 32.2 % (21-51); MEAN CORPUSCULAR HEMOGLOBIN 30.1 PG (27.0-31.0); MEAN CORPUSCULAR VOLUME 91.5 FL (78-98); MONOCYTES # (AUTO) 1.1 X10'3 (0-0.9); MONOCYTES % (AUTO) 8.2 % (2-12); NEUTROPHILS % (AUTO) 58.2 % (42-75); PLATELET COUNT 184 X10'3 (140-440); WHITE BLOOD COUNT 13.7 X10'3 (4.5-11.0)
[2021-09-18 06:14] LABS: ALANINE AMINOTRANSFERASE 16 U/L (12-78); ALBUMIN/GLOBULIN RATIO 0.8 (1.1-1.5); ALKALINE PHOSPHATASE 85 IU/L (46-116); ANION GAP 4 (8-16); ASPARTATE AMINO TRANSFERASE 16 U/L (10-37); BILIRUBIN,TOTAL 2.7 MG/DL (0.1-1.0); BLOOD UREA NITROGEN 22 MG/DL (7-18); BUN/CREATININE RATIO 20.8 (5.4-32.0); CALCIUM 8.6 MG/DL (8.5-10.1); CHLORIDE 109 MMOL/L (99-107); CREATININE 1.06 MG/DL (0.60-1.10); GLUCOSE 111 MG/DL (70-104); MAGNESIUM 2.2 MG/DL (1.5-2.4); POTASSIUM 4.3 MMOL/L (3.5-5.1); SODIUM 142 MMOL/L (135-145); TOTAL CARBON DIOXIDE 28.8 MMOL/L (24-32); TOTAL PROTEIN 6.6 G/DL (6.4-8.2); eGFR 66 ML/MIN
[2021-09-18] MEDS: K and/or MAG REPLACEMENT MC SCH ×2 (08:00→20:00)
[2021-09-18 10:00] VITALS: BP 153/76
[2021-09-18] MEDS: aspirin 325mg tablet PO SCH (10:22)
[2021-09-18] MEDS: heparin, porcine 5000 units/ml vial SQ SCH ×2 (10:22→21:40)
[2021-09-18] MEDS: lisinopril 20mg tablet PO SCH (10:23)
[2021-09-18] MEDS: docusate sod 100mg capsule PO SCH ×2 (10:23→21:39)
[2021-09-18] MEDS: amLODIPine 5mg tablet PO SCH (10:24)
[2021-09-18] MEDS ORDERED: CEPH-585 PO ×2 (10:36)
--- NOTE | 2021-09-18 11:40 | NUR ---
Dr. Gilmore saw pt and stated pt may be discharged 6/2 after increasing activity today. After dc'g, pt is to follow up w/ Dr. Gilman next week, and himself (Dr Gilmore) in 4 weeks.
[2021-09-18] MEDS: cephalexin 500mg capsule PO SCH (17:49)
[2021-09-18 18:00] VITALS: BP 142/84
--- NOTE | 2021-09-18 18:17 | NUR ---
Report to Kathleen RIVERS
--- NOTE | 2021-09-18 18:20 | NUR ---
Patient in room ORTHO 4006. I have received report from Eleanor RIVERS and had the opportunity to ask questions and assume patient care. Addendum: 09/18/21 at 1906 by Kathleen Deshpande RN Amended: Links added.
[2021-09-18] MEDS: psyllium seed 3.4 gm packet PO SCH (21:40)
[2021-09-18 22:00] VITALS: BP 171/78
[2021-09-19] MEDS: cephalexin 500mg capsule PO SCH ×2 (00:59→07:35)
--- NOTE | 2021-09-19 05:00 | NUR ---
Pt. slept well with no c/o pain or chest pain this shift. PM site without s/s of complications this shift-remained pt not to pull or reach above the shoulders for precaution purpose. Pt. verbalized understanding. Call light within reach and bed in low position. Addendum: 09/19/21 at 0755 by Kathleen Deshpande RN Amended: Links added.
[2021-09-19 06:27] LABS: BASOPHILS # (AUTO) 0.1 X10'3 (0-0.2); EOSINOPHILS # (AUTO) 0.2 X10'3 (0-0.9); LYMPHOCYTES # (AUTO) 5.3 X10'3 (1.1-4.8); LYMPHOCYTES % (AUTO) 38.3 % (21-51); MEAN CORPUSCULAR HEMOGLOBIN 30.7 PG (27.0-31.0); RED BLOOD COUNT 4.58 X10'6 (4.70-6.10); WHITE BLOOD COUNT 13.9 X10'3 (4.5-11.0)
[2021-09-19 06:31] LABS: BASOPHILS % (AUTO) 0.7 % (0-1); EOSINOPHILS % (AUTO) 1.7 % (0-6); HEMATOCRIT 42.2 % (42.0-52.0); HEMOGLOBIN 14.1 g/dl (14.0-17.9); MEAN CORPUSCULAR HGB CONC 33.3 g/dL (33.0-36.5); MEAN CORPUSCULAR VOLUME 92.3 FL (78-98); MEAN PLATELET VOLUME 9.6 FL (7.4-10.4); MONOCYTES % (AUTO) 7.1 % (2-12); NEUTROPHILS # (AUTO) 7.3 X10'3 (1.8-7.7); NEUTROPHILS % (AUTO) 52.2 % (42-75); PLATELET COUNT 191 X10'3 (140-440)
[2021-09-19 06:40] LABS: ALANINE AMINOTRANSFERASE 12 U/L (12-78); ALBUMIN/GLOBULIN RATIO 0.8 (1.1-1.5); ALKALINE PHOSPHATASE 86 IU/L (46-116); ANION GAP 6 (8-16); ASPARTATE AMINO TRANSFERASE 19 U/L (10-37); BILIRUBIN,TOTAL 2.1 MG/DL (0.1-1.0); BLOOD UREA NITROGEN 23 MG/DL (7-18); BUN/CREATININE RATIO 25.8 (5.4-32.0); CALCIUM 8.6 MG/DL (8.5-10.1); CHLORIDE 108 MMOL/L (99-107); CREATININE 0.89 MG/DL (0.60-1.10); GLUCOSE 109 MG/DL (70-104); MAGNESIUM 2.2 MG/DL (1.5-2.4); POTASSIUM 4.1 MMOL/L (3.5-5.1); SODIUM 141 MMOL/L (135-145); TOTAL PROTEIN 6.8 G/DL (6.4-8.2); eGFR 81 ML/MIN
--- NOTE | 2021-09-19 06:45 | NUR ---
Problems reprioritized. Patient report given, questions answered & plan of care reviewed with Padmini. Addendum: 09/19/21 at 0814 by Kathleen Deshpande RN Amended: Links added.
--- NOTE | 2021-09-19 07:02 | NUR ---
Received patient report from SILVESTRE Wang.
[2021-09-19 07:17] VITALS: BP 158/92
[2021-09-19] MEDS: lisinopril 20mg tablet PO SCH (07:35)
[2021-09-19] MEDS: amLODIPine 5mg tablet PO SCH (07:35)
[2021-09-19] MEDS: aspirin 325mg tablet PO SCH (07:36)
[2021-09-19] MEDS: docusate sod 100mg capsule PO SCH (07:36)
[2021-09-19] MEDS: heparin, porcine 5000 units/ml vial SQ SCH (07:47)
[2021-09-19] MEDS: K and/or MAG REPLACEMENT MC SCH (08:00)
--- NOTE | 2021-09-19 09:23 | NUR ---
PAGER ID: [phone] MESSAGE: [id number], Ashley walked 150 feet with cane and tolerated well. Minimal shortness of breath and no dizziness. ba [id number]
--- NOTE | 2021-09-19 11:07 | NUR ---
PAGER ID: [phone] MESSAGE: [id number] Ashley, walked patient 150 feet with no issues. Family is here and is asking if he can be discharged. Thanks!! ba [phone]
[2021-09-19 11:16] VITALS: BP 151/67
== END 2021-09-19 13:58 | disposition home or self-care (01) | DRG 242 ==
LOC: ER 17:12 → ED HOLD 19:45 → ORTHO 4S 20:44
PROVIDERS: ADMIT Internal Medicine; ATTEND Internal Medicine
PROC: 02H63JZ Insertion of Pacemaker Lead into Right Atrium, Percutaneous Approach (ICD-10-PCS; 2021-09-17)
PROC: 02HK3JZ Insertion of Pacemaker Lead into Right Ventricle, Percutaneous Approach (ICD-10-PCS; 2021-09-17)
PROC: 0JH606Z Insertion of Pacemaker, Dual Chamber into Chest Subcutaneous Tissue and Fascia, Open Approach (ICD-10-PCS; principal; 2021-09-17 15:55)
DX: I44.2 Atrioventricular block, complete (principal); I21.4 Non-ST elevation (NSTEMI) myocardial infarction; N17.9 Acute kidney failure, unspecified; Z66 Do not resuscitate; I11.0 Hypertensive heart disease with heart failure; Z20.822 Contact with and (suspected) exposure to COVID-19; I50.9 Heart failure, unspecified; D72.829 Elevated white blood cell count, unspecified; Z96.649 Presence of unspecified artificial hip joint; I25.10 Atherosclerotic heart disease of native coronary artery without angina pectoris; I27.20 Pulmonary hypertension, unspecified; J43.9 Emphysema, unspecified; I25.2 Old myocardial infarction; Z87.891 Personal history of nicotine dependence; Z79.899 Other long term (current) drug therapy; Z79.82 Long term (current) use of aspirin
CPT/HCPCS: 36415; 71045; 71250; 76000; 80053; 80061; 82948; 83036; 83735; 83880; 84132; 84443; 84484; 85025; 85610; 87081; 87635; 93005; 93306; 94760; 96374; 99285; A4215; A4618; A6258; A7000; C1785; G0378; J0690; J1644; J1940; J2250; J3010; J3490; J7120

== ENCOUNTER 2021-09-26 12:57 | Inpatient (IN) | payer MEDICARE ==
[~2021-09-26] VITALS: Ht 182.9 cm; Wt 100.0 kg
[~2021-09-26 12:57] MED LIST changes: +AMLO10TA PO; -AMLO1CAP2 PO; +BENA40TA46 PO; -CLIN-97 PO
[2021-09-26 14:01] LABS: ALANINE AMINOTRANSFERASE 27 U/L (12-78); ALBUMIN 3.2 G/DL (3.4-5.0); ALBUMIN/GLOBULIN RATIO 0.8 (1.1-1.5); ALKALINE PHOSPHATASE 91 IU/L (46-116); ANION GAP 8 (8-16); ASPARTATE AMINO TRANSFERASE 26 U/L (10-37); BILIRUBIN,TOTAL 1.5 MG/DL (0.1-1.0); BLOOD UREA NITROGEN 18 MG/DL (7-18); BUN/CREATININE RATIO 17.1 (5.4-32.0); CALCIUM 8.7 MG/DL (8.5-10.1); CHLORIDE 105 MMOL/L (99-107); CREATININE 1.05 MG/DL (0.60-1.10); GLUCOSE 139 MG/DL (70-104); POTASSIUM 4.2 MMOL/L (3.5-5.1); SODIUM 138 MMOL/L (135-145); TOTAL CARBON DIOXIDE 24.7 MMOL/L (24-32); TOTAL PROTEIN 7.1 G/DL (6.4-8.2); eGFR 67 ML/MIN
[2021-09-26 14:13] LABS: HEMOGLOBIN 13.8 g/dl (14.0-17.9); MEAN CORPUSCULAR HGB CONC 33.2 g/dL (33.0-36.5); MEAN PLATELET VOLUME 8.5 FL (7.4-10.4); NEUTROPHILS # (AUTO) 10.4 X10'3 (1.8-7.7)
[2021-09-26 14:15] LABS: BASOPHILS % (AUTO) 0.3 % (0-1); EOSINOPHILS % (AUTO) 0 % (0-6); HEMATOCRIT 41.7 % (42.0-52.0); LYMPHOCYTES # (AUTO) 4.7 X10'3 (1.1-4.8); LYMPHOCYTES % (AUTO) 28.8 % (21-51); MEAN CORPUSCULAR HEMOGLOBIN 30.2 PG (27.0-31.0); MEAN CORPUSCULAR VOLUME 91.1 FL (78-98); MONOCYTES # (AUTO) 1.1 X10'3 (0-0.9); MONOCYTES % (AUTO) 6.7 % (2-12); NEUTROPHILS % (AUTO) 64.2 % (42-75); PLATELET COUNT 189 X10'3 (140-440); RED BLOOD COUNT 4.58 X10'6 (4.70-6.10); RED CELL DISTRIBUTION WIDTH 14.6 % (11.5-14.5); WHITE BLOOD COUNT 16.2 X10'3 (4.5-11.0)
[2021-09-26 14:29] LABS: LARGE PLATELETS FEW; PLATELET ESTIMATE NORMAL
[2021-09-26 15:09] LABS: CLARITY,URINE CLEAR (Clear); COLOR,URINE YELLOW (Yellow); GLUCOSE, URINE NEGATIVE (Neg); KETONES,URINE TRACE mg/dl (Neg); LEUKOCYTE ESTERASE ,URINE TRACE (Neg); NITRITES, URINE NEGATIVE (Neg); OCCULT BLOOD,URINE TRACE-INTACT (Neg); PH,URINE 5.5 (4.8-8.0); PROTEIN,URINE NEGATIVE (Neg)
[2021-09-26 15:27] LABS: UA COLLECTION TYPE NON-SPECIFIED
[2021-09-26] MEDS ORDERED: CefTRIAXone 2gm/NS 100ml IVPB 100 ML IV ONE (15:40)
[2021-09-26] MEDS ORDERED: aspirin 81mg tab.chew PO ONE (15:40)
[2021-09-26 16:00] LABS: HYALINE CASTS 0-3 /LPF (NEGATIVE); SQUAMOUS EPITHELIAL CELL,UR FEW /LPF (FEW)
[2021-09-26 16:02] LABS: BACTERIA,URINE FEW /HPF (Neg)
[2021-09-26 16:03] LABS: RBC,URINE 0-2 /HPF (0-2)
[2021-09-26 16:04] LABS: MUCUS STRANDS MANY /LPF (Neg)
[2021-09-26 16:20] LABS: C-REACTIVE PROTEIN 0.52 MG/DL (0.0-0.5)
[2021-09-26] MEDS ORDERED: ondansetron/PF 4mg/2ml inj IV PRN (16:50)
[2021-09-26] MEDS ORDERED: acetaminophen 325mg tablet PO PRN ×2 (16:50)
[2021-09-26] MEDS ORDERED: magnesium hydroxide 30ml (MOM) UD suspension PO PRN (16:50)
[2021-09-26] MEDS ORDERED: mag hydrox/Alum hydrox/simeth 30ml oral suspension PO PRN (16:50)
[2021-09-26] MEDS ORDERED: potassium CL 10mEq/100ml bag 100 ML IV PRN (16:50)
[2021-09-26] MEDS ORDERED: HYDROcodone/acetaminophen 5mg/325mg tablet PO PRN (16:50)
[2021-09-26] MEDS ORDERED: magnesium 4gm in 100ml NS 100 ML IV PRN (16:50)
[2021-09-26] MEDS ORDERED: magnesium 2GM in 50ml NS 50 ML IV PRN (16:50)
[2021-09-26] MEDS ORDERED: POTASSIUM BICARB 20meq eff tab 20 MEQ TABLET.EFF PO PRN ×2 (16:50)
[2021-09-26] MEDS ORDERED: HYDROcodone/acetaminophen 10/325mg tab PO PRN (16:50)
[2021-09-26] MEDS ORDERED: heparin 25,000 UNIT/250ml bag 250 ML IV SCH (17:00)
[2021-09-26] MEDS ORDERED: heparin 10,000 units/1 ML INJ IV ONE (17:00)
[2021-09-26] MEDS ORDERED: heparin 10,000 units/1 ML INJ IV PRN (17:10)
[2021-09-26 17:30] LABS: APTT 29 SECONDS (22-32)
[2021-09-26] MEDS: docusate sod 100mg capsule PO SCH (18:21)
[2021-09-26] MEDS: K and/or MAG REPLACEMENT MC SCH (18:21)
[2021-09-26 22:00] VITALS: BP 129/62
[2021-09-26] MEDS: enoxaparin 40mg/0.4ml syringe SQ SCH (23:20)
[2021-09-27 02:00] VITALS: BP 143/87
[2021-09-27 06:20] LABS: BASOPHILS # (AUTO) 0.1 X10'3 (0-0.2); MEAN CORPUSCULAR VOLUME 91.5 FL (78-98); MONOCYTES # (AUTO) 1.2 X10'3 (0-0.9); RED BLOOD COUNT 4.43 X10'6 (4.70-6.10)
[2021-09-27 06:22] LABS: BASOPHILS % (AUTO) 0.7 % (0-1); EOSINOPHILS % (AUTO) 0.3 % (0-6); HEMATOCRIT 40.6 % (42.0-52.0); HEMOGLOBIN 13.4 g/dl (14.0-17.9); LYMPHOCYTES # (AUTO) 5.2 X10'3 (1.1-4.8); LYMPHOCYTES % (AUTO) 39.9 % (21-51); MEAN CORPUSCULAR HEMOGLOBIN 30.3 PG (27.0-31.0); MEAN CORPUSCULAR HGB CONC 33.1 g/dL (33.0-36.5); MEAN PLATELET VOLUME 8.9 FL (7.4-10.4); MONOCYTES % (AUTO) 9.3 % (2-12); NEUTROPHILS # (AUTO) 6.5 X10'3 (1.8-7.7); NEUTROPHILS % (AUTO) 49.8 % (42-75); PLATELET COUNT 176 X10'3 (140-440); RED CELL DISTRIBUTION WIDTH 14.6 % (11.5-14.5); WHITE BLOOD COUNT 13.1 X10'3 (4.5-11.0)
--- NOTE | 2021-09-27 06:41 | NUR ---
Problems reprioritized. Patient report given, questions answered & plan of care reviewed with NIDIA RIVERS
[2021-09-27 06:43] LABS: ALANINE AMINOTRANSFERASE 23 U/L (12-78); ALBUMIN 2.8 G/DL (3.4-5.0); ALBUMIN/GLOBULIN RATIO 0.8 (1.1-1.5); ALKALINE PHOSPHATASE 77 IU/L (46-116); ANION GAP 4 (8-16); ASPARTATE AMINO TRANSFERASE 17 U/L (10-37); BILIRUBIN,TOTAL 1.8 MG/DL (0.1-1.0); BLOOD UREA NITROGEN 19 MG/DL (7-18); BUN/CREATININE RATIO 18.3 (5.4-32.0); CALCIUM 8.6 MG/DL (8.5-10.1); CHLORIDE 110 MMOL/L (99-107); CREATININE 1.04 MG/DL (0.60-1.10); GLUCOSE 116 MG/DL (70-104); MAGNESIUM 2.1 MG/DL (1.5-2.4); SODIUM 141 MMOL/L (135-145); TOTAL CARBON DIOXIDE 27.5 MMOL/L (24-32); TOTAL PROTEIN 6.5 G/DL (6.4-8.2); eGFR 68 ML/MIN
[2021-09-27 10:37] VITALS: BP 104/60
[2021-09-27] MEDS: K and/or MAG REPLACEMENT MC SCH ×2 (10:46→20:00)
[2021-09-27] MEDS: docusate sod 100mg capsule PO SCH ×2 (10:54→20:30)
[2021-09-27] MEDS: cefTRIAXone 1g/NS 100ml IVPB 100 ML IV SCH (10:54)
[2021-09-27 12:59] VITALS: BP 143/78
[2021-09-27] MEDS: amLODIPine 5mg tablet PO SCH (15:27)
[2021-09-27] MEDS: lisinopril 20mg tablet PO SCH (15:28)
[2021-09-27 16:20] VITALS: BP 168/109
[2021-09-27 18:00] VITALS: BP 152/89
[2021-09-27] MEDS: enoxaparin 40mg/0.4ml syringe SQ SCH (20:30)
[2021-09-27 22:00] VITALS: BP 125/68
[2021-09-28] VITALS (17 sets, daily range): BP systolic 110–154; BP diastolic 60–102
--- NOTE | 2021-09-28 06:20 | NUR ---
Patient in room PCU 3017. I have received report from SILVESTRE Villa and had the opportunity to ask questions and assume patient care.
[2021-09-28 06:38] LABS: BASOPHILS # (AUTO) 0.1 X10'3 (0-0.2); EOSINOPHILS # (AUTO) 0.1 X10'3 (0-0.9); HEMOGLOBIN 14.6 g/dl (14.0-17.9); NEUTROPHILS % (AUTO) 47.3 % (42-75)
[2021-09-28 06:40] LABS: BASOPHILS % (AUTO) 0.8 % (0-1); HEMATOCRIT 43.4 % (42.0-52.0); LYMPHOCYTES # (AUTO) 4.7 X10'3 (1.1-4.8); LYMPHOCYTES % (AUTO) 41.7 % (21-51); MEAN CORPUSCULAR HEMOGLOBIN 30.9 PG (27.0-31.0); MEAN CORPUSCULAR HGB CONC 33.7 g/dL (33.0-36.5); MEAN CORPUSCULAR VOLUME 91.7 FL (78-98); MEAN PLATELET VOLUME 9.1 FL (7.4-10.4); MONOCYTES % (AUTO) 9.2 % (2-12); NEUTROPHILS # (AUTO) 5.4 X10'3 (1.8-7.7); PLATELET COUNT 175 X10'3 (140-440); RED BLOOD COUNT 4.73 X10'6 (4.70-6.10); RED CELL DISTRIBUTION WIDTH 14.5 % (11.5-14.5); WHITE BLOOD COUNT 11.4 X10'3 (4.5-11.0)
[2021-09-28 06:47] LABS: ALANINE AMINOTRANSFERASE 19 U/L (12-78); ALBUMIN 3.1 G/DL (3.4-5.0); ALBUMIN/GLOBULIN RATIO 0.8 (1.1-1.5); ALKALINE PHOSPHATASE 81 IU/L (46-116); ANION GAP 5 (8-16); ASPARTATE AMINO TRANSFERASE 17 U/L (10-37); BILIRUBIN,TOTAL 1.4 MG/DL (0.1-1.0); BLOOD UREA NITROGEN 20 MG/DL (7-18); BUN/CREATININE RATIO 20.2 (5.4-32.0); CHLORIDE 107 MMOL/L (99-107); CREATININE 0.99 MG/DL (0.60-1.10); GLUCOSE 124 MG/DL (70-104); MAGNESIUM 2.1 MG/DL (1.5-2.4); POTASSIUM 4.2 MMOL/L (3.5-5.1); SODIUM 139 MMOL/L (135-145); TOTAL CARBON DIOXIDE 26.7 MMOL/L (24-32); TOTAL PROTEIN 7.1 G/DL (6.4-8.2); eGFR 72 ML/MIN
[2021-09-28] MEDS ORDERED: LIDOcaine 1% 30ml preserv. free vial ONE (07:26)
[2021-09-28] MEDS: K and/or MAG REPLACEMENT MC SCH ×2 (08:00→19:21)
[2021-09-28] MEDS: docusate sod 100mg capsule PO SCH ×2 (09:45→19:23)
[2021-09-28] MEDS: cefTRIAXone 1g/NS 100ml IVPB 100 ML IV SCH (09:45)
[2021-09-28] MEDS: amLODIPine 5mg tablet PO SCH (09:46)
[2021-09-28] MEDS: lisinopril 20mg tablet PO SCH (09:46)
[2021-09-28 09:50] LABS: PRE OP PARTIAL THROMB. TIME 26 SECONDS (22-32)
[2021-09-28] MEDS ORDERED: fentaNYL/PF 50MCG/1 ML 2ML syringe ONE (10:09)
[2021-09-28] MEDS ORDERED: midazolam 1 mg/ML 2ml injection ONE (10:09)
[2021-09-28] MEDS ORDERED: propofol inj 20 ML IV ONE (10:58)
--- NOTE | 2021-09-28 10:59 | NUR ---
Received from OR [facility][ITAL BED, accompanied by Anesthesiologist DR SANDOVAL and report given by Anesthesiolgist. PT PRESNTS WITH PIV 20G L HAND, DRESSING ON UPPER LEFT CHEST CDI, NORMAL SALINE BAG 1000MLS ON PT'S LEFT STEVEN CHRISTINA. Addendum: 09/28/21 at 1145 by Africa Fang RN, RN Amended: Links added.
--- NOTE | 2021-09-28 11:35 | NUR ---
Report received from CHISEL TRIMMER, Africa
--- NOTE | 2021-09-28 11:39 | NUR ---
Report called to receiving nurse SAUL RIVERS. Transferred via HOPSITAL BED TO ROOM 3017B WHERE PT LET HIS BELONGINGS. BED IN LOW LOCKED POSITION, PT ANTHONY CALL LIGHT AND HOOKED UP TO VITALS MONITOR. Special Issues communicated to receiving nurse. Addendum: 09/28/21 at 1145 by Africa Fang RN RN Amended: Links added.
--- NOTE | 2021-09-28 18:10 | NUR ---
Problems reprioritized. Patient report given, questions answered & plan of care reviewed with SILVESTRE Villa.
[2021-09-28] MEDS: enoxaparin 40mg/0.4ml syringe SQ SCH (19:24)
[2021-09-29 02:00] VITALS: BP 145/84
--- NOTE | 2021-09-29 06:20 | NUR ---
Patient in room PCU 3017. I have received report from SILVESTRE Villa and had the opportunity to ask questions and assume patient care.
--- NOTE | 2021-09-29 06:23 | NUR ---
Problems reprioritized. Patient report given, questions answered & plan of care reviewed with Raymundo RIVERS.
[2021-09-29 06:30] VITALS: BP 151/92
[2021-09-29 06:41] LABS: BASOPHILS # (AUTO) 0.1 X10'3 (0-0.2); BASOPHILS % (AUTO) 0.9 % (0-1); EOSINOPHILS # (AUTO) 0.2 X10'3 (0-0.9); HEMOGLOBIN 15.5 g/dl (14.0-17.9)
[2021-09-29 06:43] LABS: EOSINOPHILS % (AUTO) 1.8 % (0-6); HEMATOCRIT 46.2 % (42.0-52.0); LYMPHOCYTES # (AUTO) 6.4 X10'3 (1.1-4.8); LYMPHOCYTES % (AUTO) 45.8 % (21-51); MEAN CORPUSCULAR HEMOGLOBIN 31.2 PG (27.0-31.0); MEAN CORPUSCULAR HGB CONC 33.6 g/dL (33.0-36.5); MEAN CORPUSCULAR VOLUME 92.9 FL (78-98); MEAN PLATELET VOLUME 9.2 FL (7.4-10.4); MONOCYTES % (AUTO) 7.5 % (2-12); NEUTROPHILS # (AUTO) 6.1 X10'3 (1.8-7.7); PLATELET COUNT 203 X10'3 (140-440); RED BLOOD COUNT 4.97 X10'6 (4.70-6.10); RED CELL DISTRIBUTION WIDTH 14.8 % (11.5-14.5)
[2021-09-29 07:14] LABS: ALANINE AMINOTRANSFERASE 20 U/L (12-78); ALBUMIN 3.1 G/DL (3.4-5.0); ALBUMIN/GLOBULIN RATIO 0.8 (1.1-1.5); ALKALINE PHOSPHATASE 84 IU/L (46-116); ANION GAP 7 (8-16); ASPARTATE AMINO TRANSFERASE 20 U/L (10-37); BILIRUBIN,TOTAL 1.5 MG/DL (0.1-1.0); BLOOD UREA NITROGEN 22 MG/DL (7-18); BUN/CREATININE RATIO 20.8 (5.4-32.0); CALCIUM 9.2 MG/DL (8.5-10.1); CHLORIDE 108 MMOL/L (99-107); CREATININE 1.06 MG/DL (0.60-1.10); GLUCOSE 122 MG/DL (70-104); MAGNESIUM 2.2 MG/DL (1.5-2.4); POTASSIUM 4.4 MMOL/L (3.5-5.1); SODIUM 140 MMOL/L (135-145); TOTAL CARBON DIOXIDE 25.2 MMOL/L (24-32); TOTAL PROTEIN 7.2 G/DL (6.4-8.2); eGFR 66 ML/MIN
[2021-09-29] MEDS: K and/or MAG REPLACEMENT MC SCH ×2 (07:27→18:34)
[2021-09-29] MEDS: cefTRIAXone 1g/NS 100ml IVPB 100 ML IV SCH (09:13)
[2021-09-29] MEDS: amLODIPine 5mg tablet PO SCH (09:14)
[2021-09-29] MEDS: docusate sod 100mg capsule PO SCH ×2 (09:15→20:10)
[2021-09-29] MEDS: lisinopril 20mg tablet PO SCH (09:15)
[2021-09-29] MEDS: linezolid 600mg tablet PO SCH ×2 (10:11→20:10)
[2021-09-29 11:00] VITALS: BP 140/93
[2021-09-29 15:00] VITALS: BP 142/88
[2021-09-29 15:23] LABS: BASOPHILS # (AUTO) 0.1 X10'3 (0-0.2); EOSINOPHILS # (AUTO) 0.2 X10'3 (0-0.9); EOSINOPHILS % (AUTO) 1.7 % (0-6); HEMATOCRIT 42.9 % (42.0-52.0); HEMOGLOBIN 14.2 g/dl (14.0-17.9); LYMPHOCYTES # (AUTO) 5.2 X10'3 (1.1-4.8); LYMPHOCYTES % (AUTO) 41.9 % (21-51); MEAN CORPUSCULAR HEMOGLOBIN 30.3 PG (27.0-31.0); MEAN CORPUSCULAR HGB CONC 33.2 g/dL (33.0-36.5); MEAN CORPUSCULAR VOLUME 91.2 FL (78-98); MEAN PLATELET VOLUME 9.5 FL (7.4-10.4); MONOCYTES % (AUTO) 7.7 % (2-12); NEUTROPHILS # (AUTO) 5.9 X10'3 (1.8-7.7); NEUTROPHILS % (AUTO) 47.7 % (42-75); PLATELET COUNT 206 X10'3 (140-440); RED CELL DISTRIBUTION WIDTH 14.6 % (11.5-14.5); WHITE BLOOD COUNT 12.3 X10'3 (4.5-11.0)
--- NOTE | 2021-09-29 18:20 | NUR ---
Problems reprioritized. Patient report given, questions answered & plan of care reviewed with SILVESTRE Yee.
[2021-09-29] MEDS: enoxaparin 40mg/0.4ml syringe SQ SCH (20:11)
[2021-09-29 21:53] VITALS: BP 103/70
[2021-09-29 22:30] VITALS: BP 122/81
--- NOTE | 2021-09-29 22:46 | NUR ---
2129 RC'D VERBAL REPORT FROM CARI RIVERS AND ASSUMED CARE OF PATIENT WHEN HE ARRIVED VIA W/C FROM TELE FLOOR. TRANSFERED SELF INTO ORTHO BED AND ORIENTED TO ROOM. CALL LIGHT GIVEN TO PATIENT AND EXPLAINED IT'S USE. STATED UNDERSTANDING. PATIENT ALERT AND ORIENTED, ANSWERS ALL QUESTIONS APPROP. DENIES ANY PAIN OR DISCOMFORT. AGREE WITH PATIENT'S ASSMT.
[2021-09-30 06:00] VITALS: BP 149/88
[2021-09-30 06:23] LABS: BASOPHILS # (AUTO) 0.1 X10'3 (0-0.2); EOSINOPHILS # (AUTO) 0.2 X10'3 (0-0.9); EOSINOPHILS % (AUTO) 2.3 % (0-6); HEMATOCRIT 42.3 % (42.0-52.0); LYMPHOCYTES # (AUTO) 5.1 X10'3 (1.1-4.8); LYMPHOCYTES % (AUTO) 49.6 % (21-51); MEAN CORPUSCULAR HEMOGLOBIN 30.4 PG (27.0-31.0); MEAN CORPUSCULAR HGB CONC 33.2 g/dL (33.0-36.5); MEAN CORPUSCULAR VOLUME 91.7 FL (78-98); MEAN PLATELET VOLUME 9.3 FL (7.4-10.4); MONOCYTES # (AUTO) 0.9 X10'3 (0-0.9); MONOCYTES % (AUTO) 8.3 % (2-12); NEUTROPHILS % (AUTO) 38.8 % (42-75); PLATELET COUNT 202 X10'3 (140-440); RED BLOOD COUNT 4.61 X10'6 (4.70-6.10); RED CELL DISTRIBUTION WIDTH 14.5 % (11.5-14.5); WHITE BLOOD COUNT 10.3 X10'3 (4.5-11.0)
[2021-09-30 06:31] LABS: ALANINE AMINOTRANSFERASE 18 U/L (12-78); ALBUMIN 2.7 G/DL (3.4-5.0); ALBUMIN/GLOBULIN RATIO 0.7 (1.1-1.5); ALKALINE PHOSPHATASE 76 IU/L (46-116); ANION GAP 5 (8-16); ASPARTATE AMINO TRANSFERASE 18 U/L (10-37); BILIRUBIN,TOTAL 1.2 MG/DL (0.1-1.0); BLOOD UREA NITROGEN 24 MG/DL (7-18); BUN/CREATININE RATIO 20.9 (5.4-32.0); CALCIUM 8.8 MG/DL (8.5-10.1); CHLORIDE 107 MMOL/L (99-107); CREATININE 1.15 MG/DL (0.60-1.10); GLUCOSE 103 MG/DL (70-104); MAGNESIUM 2.1 MG/DL (1.5-2.4); POTASSIUM 4.2 MMOL/L (3.5-5.1); SODIUM 139 MMOL/L (135-145); TOTAL CARBON DIOXIDE 26.7 MMOL/L (24-32); TOTAL PROTEIN 6.5 G/DL (6.4-8.2); eGFR 60 ML/MIN
[2021-09-30] MEDS: K and/or MAG REPLACEMENT MC SCH (08:00)
[2021-09-30] MEDS: docusate sod 100mg capsule PO SCH (08:32)
[2021-09-30] MEDS: amLODIPine 5mg tablet PO SCH (08:34)
[2021-09-30] MEDS: lisinopril 20mg tablet PO SCH (08:34)
[2021-09-30 10:00] VITALS: BP 137/87
[2021-09-30] MEDS: linezolid 600mg tablet PO SCH (10:47)
[2021-09-30] MEDS ORDERED: LINE600T14 PO (11:19)
--- NOTE | 2021-09-30 12:53 | NUR ---
Patient in room ORTHO 4022. I have received report from darryl rodriguez and had the opportunity to ask questions and assume patient care.
--- NOTE | 2021-09-30 12:58 | NUR ---
Zyvox consult: Pt started on zyvox per EMR. Pt seen at bedside by JAZ for written/verbal low-tyramine diet ed w/ RD contact information provided. RD encouraged pt to contact dietitian's office if further questions/concerns. Addendum: 09/30/21 at [address] Amended: Links added.
--- NOTE | 2021-09-30 13:22 | NUR ---
Page Sent PAGER ID: [phone] MESSAGE: [phone] william Ramirez, are you going to be escripting the pts meds tot he pharmacy? or should I call it in? [phone]
--- NOTE | 2021-09-30 13:33 | NUR ---
medication called into pharmacy for pt per dr adorno
--- NOTE | 2021-09-30 14:32 | NUR ---
pt is stable for discharge, iv is dc cannula intact, all belongings were taken with pt, all paperwork gone over and signed, meds called to pharmacy, pt left in a private vehicle with a friend. he was wheeled down by an aide.
== END 2021-09-30 14:32 | disposition home or self-care (01) | DRG 260 ==
LOC: ER 12:57 → ED HOLD 16:52 → PCU 3S 19:27 → ORTHO 4S 09-29 21:54
PROVIDERS: ADMIT Family Medicine; ATTEND Internal Medicine
PROC: 4B02XSZ Measurement of Cardiac Pacemaker, External Approach (ICD-10-PCS; 2021-09-27)
PROC: 02WA0MZ Revision of Cardiac Lead in Heart, Open Approach (ICD-10-PCS; principal; 2021-09-28 10:05)
DX: T82.110A Breakdown (mechanical) of cardiac electrode, initial encounter (principal); I21.A1 Myocardial infarction type 2; N39.0 Urinary tract infection, site not specified; I50.32 Chronic diastolic (congestive) heart failure; I25.10 Atherosclerotic heart disease of native coronary artery without angina pectoris; I49.3 Ventricular premature depolarization; Z20.822 Contact with and (suspected) exposure to COVID-19; I27.81 Cor pulmonale (chronic); J43.9 Emphysema, unspecified; Z66 Do not resuscitate; B95.7 Other staphylococcus as the cause of diseases classified elsewhere; Y71.2 Prosthetic and other implants, materials and accessory cardiovascular devices associated with adverse incidents; I11.0 Hypertensive heart disease with heart failure; Z95.0 Presence of cardiac pacemaker; Z87.891 Personal history of nicotine dependence; Z79.899 Other long term (current) drug therapy; Y92.89 Other specified places as the place of occurrence of the external cause
CPT/HCPCS: 36415; 71045; 76000; 80053; 81001; 82948; 83605; 83735; 83880; 84145; 84484; 85008; 85025; 85610; 85651; 85730; 86140; 87040; 87070; 87075; 87077; 87081; 87088; 87186; 96365; 99291; A4215; A4615; A6258; A7000; G0378; J0696; J1650; J2250; J2704; J3010; J3490; J7030; J7120

== ENCOUNTER 2022-03-04 15:11 | Emergency (ER) | payer MEDICARE ==
[~2022-03-04] VITALS: Ht 182.9 cm; Wt 75.6 kg
[~2022-03-04 15:11] MED LIST changes: +LINE600T14 PO
[2022-03-04 15:42] LABS: BASOPHILS # (AUTO) 0.1 X10'3 (0-0.2); BASOPHILS % (AUTO) 0.8 % (0-1); EOSINOPHILS % (AUTO) 0.3 % (0-6); MEAN CORPUSCULAR HEMOGLOBIN 31.2 PG (27.0-31.0); NEUTROPHILS % (AUTO) 59.5 % (42-75)
[2022-03-04 15:44] LABS: HEMATOCRIT 41.2 % (42.0-52.0); HEMOGLOBIN 13.7 g/dl (14.0-17.9); LYMPHOCYTES # (AUTO) 3.4 X10'3 (1.1-4.8); LYMPHOCYTES % (AUTO) 29.6 % (21-51); MEAN CORPUSCULAR HGB CONC 33.3 g/dL (33.0-36.5); MEAN CORPUSCULAR VOLUME 93.8 FL (78-98); MEAN PLATELET VOLUME 8.6 FL (7.4-10.4); MONOCYTES # (AUTO) 1.1 X10'3 (0-0.9); MONOCYTES % (AUTO) 9.8 % (2-12); NEUTROPHILS # (AUTO) 6.9 X10'3 (1.8-7.7); PLATELET COUNT 177 X10'3 (140-440); RED BLOOD COUNT 4.39 X10'6 (4.70-6.10); RED CELL DISTRIBUTION WIDTH 14.6 % (11.5-14.5); WHITE BLOOD COUNT 11.6 X10'3 (4.5-11.0)
[2022-03-04 15:53] LABS: ALANINE AMINOTRANSFERASE 26 U/L (12-78); ALBUMIN 3.3 G/DL (3.4-5.0); ALBUMIN/GLOBULIN RATIO 0.9 (1.1-1.5); ALKALINE PHOSPHATASE 98 IU/L (46-116); ANION GAP 8 (8-16); ASPARTATE AMINO TRANSFERASE 18 U/L (10-37); BILIRUBIN,TOTAL 2.5 MG/DL (0.1-1.0); BLOOD UREA NITROGEN 22 MG/DL (7-18); BUN/CREATININE RATIO 18.8 (5.4-32.0); CALCIUM 8.9 MG/DL (8.5-10.1); CHLORIDE 105 MMOL/L (99-107); CREATININE 1.17 MG/DL (0.60-1.10); GLUCOSE 120 MG/DL (70-104); POTASSIUM 4.2 MMOL/L (3.5-5.1); SODIUM 139 MMOL/L (135-145); TOTAL CARBON DIOXIDE 26.1 MMOL/L (24-32); eGFR 59 ML/MIN
[2022-03-04] MEDS ORDERED: furosemide 10 MG/1 ML 10ml inj IV ONE (16:05)
[2022-03-04] MEDS ORDERED: FURO-150 PO (17:15)
[2022-03-04] MEDS ORDERED: POTA-192 PO (17:15)
[2022-03-04 17:31] VITALS: BP 138/84
[2022-03-04 19:17] LABS: TOTAL CELLS COUNTED 100
[2022-03-04 19:26] LABS: PLATELET ESTIMATE NORMAL; SMUDGE CELLS 2+
== END 2022-03-04 17:33 | disposition home or self-care (01) ==
LOC: ER 15:11
DX: I11.0 Hypertensive heart disease with heart failure (principal); I50.9 Heart failure, unspecified
CPT/HCPCS: 36415; 71045; 80053; 83880; 84484; 85007; 85025; 93005; 96374; 99285; J1940